=== PATIENT | male | born 1960 | race Caucasian/White ===

== ENCOUNTER 2016-04-22 12:58 | Emergency (ER) | payer OTHER ==
[2016-04-22] MEDS ORDERED: Acetaminophen 325 MG TAB ONE (13:24)
[2016-04-22] MEDS ORDERED: Promethazine HCl 25 MG/ML VIAL ONE (13:24)
[2016-04-22] MEDS ORDERED: Sodium Chloride 0.9% 1,000 ML ONE ×2 (13:41→16:24)
[2016-04-22 13:51] LABS: #Basophils 0.2 thou/uL (0.0-0.2); #Eosinphils 0.2 thou/uL (0.0-0.7); #Lymphocytes 0.9 thou/uL (1.20-3.40); #Monocytes 0.6 thou/uL (0.11-0.59); #Neutrophils 4.4 thou/uL (1.40-6.50); %Basophils 2.6 % (0.0-1.0); %Lymphocytes 13.7 % (21.0-51.0); %Monocytes 9.9 % (0.0-10.0); Hematocrit 48.8 % (42.0-52.0); Mean Platelet Volume 8.8 fL (7.4-10.4); Red Blood Cell (RBC) Count 5.52 mill/uL (4.70-6.10); White Blood Cell (WBC) Count 6.2 thou/uL (4.8-10.8)
[2016-04-22 14:04] LABS: ALT (SGPT) 14 U/L (0-55); AST (SGOT) 18 U/L (5-34); Acetaminophen Less than 3.0 mcg/mL (10.0-30.0); Alkaline Phosphatase 53 U/L (40-150); Anion Gap 15 mmol/L (10-20); BUN (Urea Nitrogen) 9 mg/dL (8.4-25.7); Bilirubin, Total 0.4 mg/dL (0.2-1.2); Calc. Creatinine Clearance 0 mL/min (70-130); Carbon Dioxide 22 mmol/L (22-29); Chloride 104 mmol/L (98-107); Estimated GFR-MDRD 58; Globulin 3.3 g/dL (2.4-3.5); Protein, Total 7.1 g/dL (6.0-8.3); Salicylate Less than 5.0 mg/dL (15.0-30.0)
--- NOTE | 2016-04-22 14:44 | RAD ---
RADIOGRAPH CHEST 2 VIEWS: HISTORY: 56-year-old male with cough and fever. FINDINGS: There is no air space density, pulmonary edema, pleural effusion, pneumothorax, or cardiomegaly. Th ere are sternotomy wires. No interval change since 06-16-15. IMPRESSION: No acute cardiopulmonary findings. nimesh POS: [facility]
--- NOTE | 2016-04-22 15:12 | CT ---
ABDOMEN CT WITH CONTRAST PELVIS CT WITH CONTRAST HISTORY: Cough. Nausea. Recent hospitalization for diverticulitis. History of an abdominal aort ic aneurysm. COMPARISON: Aortic dissection protocol from 04/12/2016 and 04/08/2016. TECHNIQUE: An abdomen and pelvis CT are performed with IV contrast. Enteric contrast was not admin istered. Coronal reformatted images are submitted for interpretation. FINDINGS ABDOMEN: Scarring and/or atelectasis in the right lower lobe, similar to the prior exam. No masses or consolidation. Heart size is normal. No pericardial effusion. The intrahepatic and extrahepatic portal vein is patent. The gallbladder is unremarkable. The liver, spleen, pancreas, and adrenal glands have appropriate attenuation. Symmetric enhancement of the kidneys. Bilaterally, no obstructive uropathy. Hypodensity in the mid left renal cortex, m easuring 1.6 x 2.7 cm. Hypodensity in the right renal cortex, measuring 1.5 x 1.0 cm. Hypodensitie s are similar to the previous CTs. Neither lesion could be adequately assessed on this exam due to technique. Bilaterally, no obstructive uropathy. No mesenteric mass, lymphadenopathy, free air, or free fluid. No gastrohepatic, retrocrural, or periportal lymphadenopathy. Evaluation of the alimentary canal is limited due to the absence of oral contrast. The gastric muco sa, the duodenum, and the small bowel loops are unremarkable. The ileocecal junction is normal. No rmal caliber appendix. There is evidence of appendicolith in the distal appendix. No inflammation. Scattered fecal material in a nondistended, nondilated colon. Diverticulosis, without evidence of diverticulitis, in the left hemicolon. There is atherosclerosis and eccentric thrombus, along with aneurysmal dilatation, along the infrare nal abdominal aorta. The largest area of aneurysmal dilatation measures 6.5 cm mediolateral x 5.6 c m anterior-posterior (previously measuring 6.5 x 5.4 cm). A second area of aneurysmal dilatation me asures 5.4 x 5.2 cm (previously measuring 5.5 x 5.2 cm). PELVIS: No mass, lymphadenopathy, free air, or free fluid. Evaluation is limited by beam attenuati on artifact due to a left hip prosthesis. No osteoblastic or osteolytic lesions. IMPRESSION 1. No acute abnormality within the abdomen or pelvis. 2. Indeterminate masses in the left and right kidney. 3. Stable appearance of an aneurysm involving the abdominal aorta. POS: [facility]
[2016-04-22 15:18] LABS: Bilirubin Negative (Negative); Blood, Urine Small (Negative); Glucose, Urine (Dipstick) Negative (Negative); Ketone, Urine Negative (Negative); Nitrite Negative (Negative); Protein, Urine (Dipstick) Negative (Neg-Trace); Urobilinogen 0.2 mg/dL (0.2-1.0)
[2016-04-22 15:29] LABS: Methadone Not Detected (NotDetected); Methamphetamine Not Detected (NotDetected)
[2016-04-22 15:37] LABS: RBC/HPF None Seen HPF (0-3); Squamous Epithelial 0-3 HPF (0-3)
[2016-04-22] MEDS ORDERED: Sodium Chloride 0.9% 100 ML ONE (15:41)
[2016-04-22] MEDS ORDERED: cefTRIAXone\\ROCEPHIN 2 GM VIAL ONE (15:41)
--- NOTE | 2016-04-22 17:48 | ERRECORD ---
[facility] EMERGENCY RECORD HPI FEVER (13:17 SHAN) CHIEF COMPLAINT: Patient presents for evaluation of fever. HISTORIAN: History provided by patient, History provided by patient's spouse, c/o fever, whole body aching, arrived by private vehicle; hyper entilating. states that she has similar illness a few days ago. He recently got out of hospital for treatment of diverticulitis and dx of 6.5 cm AAA. LOCATION: No localizing symptoms. QUALITY: Pain is dull in nature. SEVERITY: Maximum severity of symptoms moderate, Currently symptoms are moderate. TIME COURSE: Gradual onset of symptoms. RELIEVED BY: Patient's condition relieved by nothing. ROS (13:19 SHAN) CONSTITUTIONAL: Negative constitutional review of systems. EYES: Negative eye review of systems. ENT: Negative ears, nose, throat review of systems. CARDIOVASCULAR: Negative cardiovascular review of systems. RESPIRATORY: Negative respiratory review of systems. GI: Negative gastrointestinal review of systems. MUSCULOSKELETAL: Negative musculoskeletal review of systems. SKIN: Negative skin review of systems. NEUROLOGIC: Negative neurologic review of systems. NOTES: All systems reviewed, negative except as described above. PAST MEDICAL HISTORY (13:55 MSPE) MEDICAL HISTORY: Notes: AAA - dx'd , Past medical history includes gastrointestinal disease, diverticulitis, Past medical history includes endocrine disease, adrenal insufficiency, Past medical history includes collagen vascular disease, chronic sinusitis, CHF, history of hypertension. cardiac history, coronary artery disease, myocardial infarction, pulmonary disease, POSSIBLE chronic obstructive pulmonary disease. MALE SURGICAL HISTORY: Surgical history of orthopedic surgery, LEFT HIP REPLACEMENT, hernia repair, sinus surgery, heart cath. Surgical history of coronary artery bypass graft surgery, three vessels. PSYCHIATRIC HISTORY: No previous psychiatric history. SOCIAL HISTORY: Patient denies alcohol use, Patient denies drug use, Patient currently uses tobacco, smokes cigarettes, "occasional cigarette". KNOWN ALLERGIES Avelox CURRENT MEDICATIONS Advair Diskus: BLISTER, WITH INHALATION DEVICE : Strength - 500 mcg-50 mcg/Dose : &a-1R&a+25V*p+0X*r0795B*c202B*c15G*c2P*p-0X&a-25V&a+1R Name: Daly Jonathan Esparza JR : 1960 M56 MedRec: [id number] AcctNum: [id number] Prepared: Fri Apr 22, 2016 22:49 by Interface Page 1 of 5 pMD [facility] EMERGENCY RECORD INHALATION Patient Dose: 1 inhalation Inhaler 2 times a day.prn. (13:13 MSPE) meTOPROLOL tartrate: TABLET : Strength - 50 mg : ORAL Patient Dose: 50 mg Oral 2 times a day. (13:14 MSPE) ProAir HFA: HFA AEROSOL WITH ADAPTER (GRAM) : Strength - 90 mcg : INHALATION Patient Dose: 2 puff(s) every 6 hours PRN. (13:16 MSPE) Atrovent HFA: HFA AEROSOL WITH ADAPTER (GRAM) : Strength - 17 mcg/actuation : INHALATION Patient Dose: 2 puff(s) 2 times a day. (13:17 MSPE) aspirin: TABLET : Strength - 325 mg : ORAL Patient Dose: 1 tab(s) Oral once a day. (13:17 MSPE) Zofran ODT: TABLET,DISINTEGRATING : Strength - 4 mg : ORAL Patient Dose: 4 mg Oral every 6 hours PRN. (13:17 MSPE) Bentyl: CAPSULE : Strength - 10 mg : ORAL Patient Dose: 10 mg Oral every 8 hours PRN. (13:48 MSPE) Tylenol-Codeine #3: TABLET : Strength - 300 mg-30 mg : ORAL Patient Dose: 1-2 tab(s) Oral every 6 hours PRN. (13:48 MSPE) atorvastatin: TABLET : Strength - 20 mg : ORAL Patient Dose: 20 mg Oral once a day (at bedtime). (13:50 MSPE) carisoprodol: TABLET : Strength - 350 mg : ORAL Patient Dose: 350 mg Oral once a day. (13:51 MSPE) predniSONE: TABLET : Strength - 20 mg : ORAL Patient Dose: 20 mg Oral once a day. (13:51 MSPE) Augmentin: TABLET : Strength - 500 mg-125 mg : ORAL Patient Dose: 875/125 mg Oral 2 times a day. (13:59 MSPE) VITAL SIGNS VITAL SIGNS: BP: 117/56, Pulse: 111, Resp: 20, Temp: (Oral), O2 sat: 93 on Room Air, Time: 04/22/2016 13:08. (13:08 MSPE) Temp: 103.1 (Oral), Pain: 7-8, Time: 04/22/2016 13:10. (13:10 MSPE) BP: 84/49, Pulse: 86, Resp: 22, O2 sat: 97 on 2L Oxygen, Time: 04/22/2016 13:40. (13:40 MSPE) BP: 83/42, Pulse: 93, Resp: 20, O2 sat: 99 on 2L Oxygen, Time: 04/22/2016 13:51. (13:51 MSPE) Pulse: 92, Resp: 21, O2 sat: 100 on 2L, Time: 04/22/2016 13:57. (13:57 MSPE) &a-1R&a+25V*p+0X*s2998V*c202B*c15G*c2P*p-0X&a-25V&a+1R Name: Jonathan Kauffman JR : 1960 M56 MedRec: [id number] AcctNum: [id number] Prepared: MonApr 22, 2016 22:49 by Interface Page 2 of 5 pMD [facility] EMERGENCY RECORD BP: 105/57, Pulse: 89, Resp: 21, O2 sat: 100 on 2L Oxygen, Time: 04/22/2016 13:59. (13:59 MSPE) BP: 104/54, Pulse: 93, Resp: 20, O2 sat: 97 on 2L Oxygen, Time: 04/22/2016 14:15. (14:15 MSPE) BP: 100/58, Pulse: 89, Resp: 19, Temp: 100.3 (Oral), Pain: 7-8, O2 sat: 97 on 2L Oxygen, Time: 04/22/2016 14:44. (14:44 MSPE) BP: 101/64, Pulse: 100, Resp: 19, O2 sat: 96 on 2L Oxygen, Time: 04/22/2016 15:05. (15:05 MSPE) BP: 92/50, Pulse: 100, Resp: 20, Pain: 7, O2 sat: 96 on 2L, Time: 04/22/2016 15:19. (15:19 MSPE) BP: 82/51, Pulse: 95, Resp: 16, O2 sat: 94 on 2L Oxygen, Time: 04/22/2016 15:30. (15:30 MSPE) BP: 86/54, Pulse: 85, Resp: 17, O2 sat: 97 on 2L Oxygen, Time: 04/22/2016 15:45. (15:45 MSPE) BP: 81/58, Pulse: 88, Resp: 18, O2 sat: 94 on 2L Oxygen, Time: 04/22/2016 16:12. (16:12 MSPE) BP: 80/50, Pulse: 105, Resp: 18, O2 sat: 94 on 2L Oxygen, Time: 04/22/2016 16:21. (16:21 MSPE) BP: 81/48 (Left Arm), Pulse: 81, Temp: 100.3 (Oral), Time: 04/22/2016 16:35. (16:35 MSPE) BP: 74/41 (Right Arm), Pulse: 90, Resp: 21, O2 sat: 95 on 2L Oxygen, Time: 04/22/2016 16:36. (16:36 MSPE) BP: 83/50, Pulse: 95, Resp: 22, Time: 04/22/2016 16:46. (16:46 MSPE) BP: 92/52 L (Manual BP), Pulse: 107, Time: 04/22/2016 16:55. (16:55 MSPE) BP: 100/54 R (Manual BP), Pulse: 100, Time: 04/22/2016 16:55. (16:55 MSPE) BP: 92/56 L (Manual BP), Pulse: 100, Time: 04/22/2016 17:16. (17:16 MSPE) BP: 106/66 R (Manual BP), Pulse: 101, Time: 04/22/2016 17:16. (17:16 MSPE) BP: 96/56 L (Manual BP), Pulse: 101, Time: 04/22/2016 17:25. (17:25 MSPE) BP: 106/60 R (Manual BP), Pulse: 103, Resp: 18, Time: 04/22/2016 17:25. (17:25 MSPE) PHYSICAL EXAM (13:19 SHAN) CONSTITUTIONAL: Pulse normal, Blood pressure normal, Respiratory rate increased (hyperventilating at first)., Normal pulse oximetry, Patient appears non toxic, Patient appears in moderate vague distress. Patient alert and oriented to person, place and time, Nursing notes reviewed. HEAD: Head exam included findings of head atraumatic, normocephalic. EYES: Eye exam included findings of eyelids normal to inspection, Pupils equally round and reactive to light, Extraocular muscles intact. ENT: Pharynx exam normal, Uvula exam normal, Tonsil exam normal. NECK: Neck exam included findings of normal range of motion, Trachea midline. RESPIRATORY CHEST: Respiratory and chest exam normal. CARDIOVASCULAR: Cardiovascular exam included findings of heart rate regular rate and rhythm, Heart sounds normal. ABDOMEN MALE: Abdominal exam included findings of abdomen nontender, Bowel sounds normal. &a-1R&a+25V*p+0X*u0804C*c202B*c15G*c2P*p-0X&a-25V&a+1R Name: Jonathan Kauffman JR : 1960 M56 MedRec: [id number] AcctNum: [id number] Prepared: MonApr 22, 2016 22:49 by Interface Page 3 of 5 pMD [facility] EMERGENCY RECORD BACK: Back exam normal. UPPER EXTREMITY: Upper extremity exam included findings of inspection normal, Range of motion normal. NEURO: Neuro exam normal. SKIN: Skin exam normal. MEDICATION ADMINISTRATION SUMMARY Drug Name: *sodium chloride 0.9 % intravenous, Dose Ordered: 1 L, Route: IV Fluid Infusion, Status: Given, Time: 16:27 04/22/2016, Drug Name: cefTRIAXone, Dose Ordered: 2 g, Route: IV Push, Status: Given, Time: 15:50 04/22/2016, Drug Name: *sodium chloride 0.9 % intravenous, Dose Ordered: 1 L, Route: IV Fluid Infusion, Status: Given, Time: 13:45 04/22/2016, Drug Name: Dilaudid injection, Dose Ordered: 1 mg, Route: IV Push, Status: Given, Time: 13:27 04/22/2016, Drug Name: Phenergan injection, Dose Ordered: 12.5 mg, Route: IV Push, Status: Given, Time: 13:26 04/22/2016, Drug Name: Tylenol, Dose Ordered: 650 mg, Route: Oral, Status: Given, Time: 13:25 04/22/2016, *Additional information available in notes, Detailed record available in Medication Service section. DOCTOR NOTES TEXT: Gave the dilaudid 1 mg and 12.5 mg Phenergan for pain and nausea hoping he would relax and bp not go up with the large AAA. BP came down enough to require a liter of iv fluids. Strept positive; ON augmentin. This should not be--either false positive test (but with symptoms and fever) or an unusual resistant strain; which by hx caught while with him in hospital. Will allow 2 grams rocephin IV once. To continue meds from his other providers. (15:42 TERRY) Patient feels much better; however bp resistant to one liter; however, he now states that he took lisinopril and Toprol just before coming out 'to get my bp down'. It and the pain medication appear to have done that. Pressure agents conterindicated. Cerebrating fine. will give the second liter of fluids. Low grade temp at this time. (16:37 TERRY) Patient clinically much better than on adm; anxiety attack was likely a component. Goal is for a low but not symptomatically low bp with his aneurysm; systolic in the 90 to 100 range. When fluids in believe he can go but with close followup. (16:59 TERRY) DATA REVIEWED: Lab data reviewed, Xray data reviewed. (15:42 TERRY) PROBLEM LIST No recorded problems DIAGNOSIS (15:46 TERRY) FINAL: PRIMARY: STREPTOCOCCAL PHARYNGITIS, ADDITIONAL: 6.5 by 5.4 infrarenal aortic aneurysm, diverticulitis. &a-1R&a+25V*p+0X*q6568O*c202B*c15G*c2P*p-0X&a-25V&a+1R Name: DalyJonathan JR : 1960 M56 MedRec: [id number] AcctNum: [id number] Prepared: MonApr 22, 2016 22:49 by Interface Page 4 of 5 pMD [facility] EMERGENCY RECORD PRESCRIPTION No recorded prescriptions DISPOSITION PATIENT: Disposition Type: Discharge, Disposition: *Discharge Home. (15:46 TERRY) Patient left the department. (17:45 CHRIS) Hackett: CHRIS=ANDRES Bates, Mara STEWART=MD Walsh Stanley &a-1R&a+25V*p+0X*a5113B*c202B*c15G*c2P*p-0X&a-25V&a+1R Name: Jonathan Kauffman Isaias CHACON : 1960 M56 MedRec: [id number] AcctNum: [id number] Prepared: MonApr 22, 2016 22:49 by Interface Page 5 of 5 pMD [facility]
--- NOTE | 2016-04-22 17:54 | PICIS ---
[facility] EMERGENCY RECORD TRIAGE (13:10 MSPE) TRIAGE NOTES: ROY; "weird cough and nausea"; onset yesterday; recent hospitalization for diverticulitis. (13:10 MSPE) PATIENT: NAME: Jonathan Kauffman JR, AGE: 56, GENDER: male, : Sat 1960, TIME OF GREET: MonApr 22, 2016 12:59, PREFERRED LANGUAGE: Mohawk, ETHNICITY: Not or , ECODE BILLING MAP: [facility], SSN: [id number], Zip Code: [address], PHONE: , , , PERSON ID: [id number]. (13:10 MSPE) KG WEIGHT: 117.9 (est.). (13:12 MSPE) COMPLAINT: fever, hurts all over. (13:12 MSPE) ADMISSION: URGENCY: 3 Urgent, ADMISSION SOURCE: Home, TRANSPORT: CAR, BED: ER -02. (13:10 MSPE) IMMUNIZATIONS: Flu vaccine not up to date, Tetanus not up to date, Pneumococcal vaccine not up to date. (13:55 MSPE) PROVIDERS: TRIAGE NURSE: Mara Bates RN. (13:10 MSPE) VITAL SIGNS: BP 117/56, Pulse 111, Resp 20, (Oral), O2 Sat 93, on Room Air, Time 04/22/2016 13:08. (13:08 MSPE) PREVIOUS VISIT ALLERGIES: Avelox, moxifloxacin HCl. (13:10 MSPE) Avelox, moxifloxacin HCl. (13:55 MSPE) KNOWN ALLERGIES Avelox CURRENT MEDICATIONS Advair Diskus: BLISTER, WITH INHALATION DEVICE : Strength - 500 mcg-50 mcg/Dose : INHALATION Patient Dose: 1 inhalation Inhaler 2 times a day.prn. (13:13 MSPE) meTOPROLOL tartrate: TABLET : Strength - 50 mg : ORAL Patient Dose: 50 mg Oral 2 times a day. (13:14 MSPE) ProAir HFA: HFA AEROSOL WITH ADAPTER (GRAM) : Strength - 90 mcg : INHALATION Patient Dose: 2 puff(s) every 6 hours PRN. (13:16 MSPE) Atrovent HFA: HFA AEROSOL WITH ADAPTER (GRAM) : Strength - 17 mcg/actuation : INHALATION Patient Dose: 2 puff(s) 2 times a day. (13:17 MSPE) aspirin: TABLET : Strength - 325 mg : ORAL Patient Dose: 1 tab(s) Oral once a day. (13:17 MSPE) Zofran ODT: TABLET,DISINTEGRATING : Strength - 4 mg : ORAL Patient Dose: 4 mg Oral every 6 hours PRN. (13:17 MSPE) Bentyl: CAPSULE : Strength - 10 mg : ORAL &a-1R&a+25V*p+0X*e1003X*c202B*c15G*c2P*p-0X&a-25V&a+1R Name: Jonathan Kauffman : 1960 M56 MedRec: [id number] AcctNum: [id number] Prepared: MonApr 22, 2016 22:55 by Interface Page 1 of 17 pMD [facility] EMERGENCY RECORD Patient Dose: 10 mg Oral every 8 hours PRN. (13:48 MSPE) Tylenol-Codeine #3: TABLET : Strength - 300 mg-30 mg : ORAL Patient Dose: 1-2 tab(s) Oral every 6 hours PRN. (13:48 MSPE) atorvastatin: TABLET : Strength - 20 mg : ORAL Patient Dose: 20 mg Oral once a day (at bedtime). (13:50 MSPE) carisoprodol: TABLET : Strength - 350 mg : ORAL Patient Dose: 350 mg Oral once a day. (13:51 MSPE) predniSONE: TABLET : Strength - 20 mg : ORAL Patient Dose: 20 mg Oral once a day. (13:51 MSPE) Augmentin: TABLET : Strength - 500 mg-125 mg : ORAL Patient Dose: 875/125 mg Oral 2 times a day. (13:59 MSPE) VITAL SIGNS VITAL SIGNS: BP: 117/56, Pulse: 111, Resp: 20, Temp: (Oral), O2 sat: 93 on Room Air, Time: 04/22/2016 13:08. (13:08 MSPE) Temp: 103.1 (Oral), Pain: 7-8, Time: 04/22/2016 13:10. (13:10 MSPE) BP: 84/49, Pulse: 86, Resp: 22, O2 sat: 97 on 2L Oxygen, Time: 04/22/2016 13:40. (13:40 MSPE) BP: 83/42, Pulse: 93, Resp: 20, O2 sat: 99 on 2L Oxygen, Time: 04/22/2016 13:51. (13:51 MSPE) Pulse: 92, Resp: 21, O2 sat: 100 on 2L, Time: 04/22/2016 13:57. (13:57 MSPE) BP: 105/57, Pulse: 89, Resp: 21, O2 sat: 100 on 2L Oxygen, Time: 04/22/2016 13:59. (13:59 MSPE) BP: 104/54, Pulse: 93, Resp: 20, O2 sat: 97 on 2L Oxygen, Time: 04/22/2016 14:15. (14:15 MSPE) BP: 100/58, Pulse: 89, Resp: 19, Temp: 100.3 (Oral), Pain: 7-8, O2 sat: 97 on 2L Oxygen, Time: 04/22/2016 14:44. (14:44 MSPE) BP: 101/64, Pulse: 100, Resp: 19, O2 sat: 96 on 2L Oxygen, Time: 04/22/2016 15:05. (15:05 MSPE) BP: 92/50, Pulse: 100, Resp: 20, Pain: 7, O2 sat: 96 on 2L, Time: 04/22/2016 15:19. (15:19 MSPE) BP: 82/51, Pulse: 95, Resp: 16, O2 sat: 94 on 2L Oxygen, Time: 04/22/2016 15:30. (15:30 MSPE) BP: 86/54, Pulse: 85, Resp: 17, O2 sat: 97 on 2L Oxygen, Time: 04/22/2016 15:45. (15:45 MSPE) BP: 81/58, Pulse: 88, Resp: 18, O2 sat: 94 on 2L Oxygen, Time: 04/22/2016 16:12. (16:12 MSPE) BP: 80/50, Pulse: 105, Resp: 18, O2 sat: 94 on 2L Oxygen, Time: 04/22/2016 16:21. (16:21 MSPE) BP: 81/48 (Left Arm), Pulse: 81, Temp: 100.3 (Oral), Time: 04/22/2016 16:35. (16:35 MSPE) BP: 74/41 (Right Arm), Pulse: 90, Resp: 21, O2 sat: 95 on 2L Oxygen, &a-1R&a+25V*p+0X*o9547F*c202B*c15G*c2P*p-0X&a-25V&a+1R Name: Jonathan Kauffman JR : 1960 M56 MedRec: [id number] AcctNum: [id number] Prepared: MonApr 22, 2016 22:55 by Interface Page 2 of 17 pMD [facility] EMERGENCY RECORD Time: 04/22/2016 16:36. (16:36 MSPE) BP: 83/50, Pulse: 95, Resp: 22, Time: 04/22/2016 16:46. (16:46 MSPE) BP: 92/52 L (Manual BP), Pulse: 107, Time: 04/22/2016 16:55. (16:55 MSPE) BP: 100/54 R (Manual BP), Pulse: 100, Time: 04/22/2016 16:55. (16:55 MSPE) BP: 92/56 L (Manual BP), Pulse: 100, Time: 04/22/2016 17:16. (17:16 MSPE) BP: 106/66 R (Manual BP), Pulse: 101, Time: 04/22/2016 17:16. (17:16 MSPE) BP: 96/56 L (Manual BP), Pulse: 101, Time: 04/22/2016 17:25. (17:25 MSPE) BP: 106/60 R (Manual BP), Pulse: 103, Resp: 18, Time: 04/22/2016 17:25. (17:25 MSPE) NURSING ASSESSMENT: HEAD-TO-TOE (13:10 MSPE) CONSTITUTIONAL: Patient arrives, via hospital wheelchair, History obtained from patient, Patient appears, generally ill, Patient cooperative, Patient alert, Oriented to person, place and time, Skin abnormal, Skin temperature is hot, Skin dry, Skin normal in color. PAIN: Onset of pain yesterday, c/o aching "all over body". SKIN: Skin assessment findings include skin, hot to touch, Skin dry, Skin normal in color, Notes: intact. NEURO: GCS:, Eye opening: (4) - Spontaneous, Verbal: (5) - Oriented/conversive, Motor: (6) - Obeys commands/Spontaneous, GCS Total: 15, Hand grasps equal, Associated with fever. BACK: Notes: c/o chronic back and hip pain. RESPIRATORY/CHEST: Breath sounds clear, Respiratory assessment findings include respiratory effort easy, Respirations regular, Conversing normally, Associated with cough, pt reports having a "weird cough", Associated with fever, Maximum temperature not taken by pt. ABDOMEN: Abdomen soft, Notes: non-tender. GENITOURINARY MALE: Notes: denies urinary sx. SAFETY: Side rails up, Cart/Stretcher in lowest position, Family at bedside, Call light within reach, Hospital ID band on. NURSING PROCEDURE: DISCHARGE NOTE (17:35 MSPE) DISCHARGE: Patient discharged to home, ambulating without assistance, family driving, accompanied by //partner, Summary of Care printed/ provided, Discharge instructions given to patient, Simple or moderate discharge teaching performed, Above person(s) verbalized understanding of discharge instructions and follow-up care, Patient treated and evaluated by physician, Notes: Pt BP improved with infusion of second liter of NS; Dr Walsh aware of improved BP trend. OK to dc. BELONGINGS: Belongings remain with patient. NURSING PROCEDURE: INTAKE AND OUTPUT (15:31 MSPE) INTAKE AND OUTPUT: Oral intake(ml): 240, IV intake(ml): 1000, Total Intake (ml): 1240ml, Urine output(ml): 175, Total &a-1R&a+25V*p+0X*p3136Y*c202B*c15G*c2P*p-0X&a-25V&a+1R Name: VancegarrickJonathan JR : 1960 M56 MedRec: [id number] AcctNum: [id number] Prepared: MonApr 22, 2016 22:55 by Interface Page 3 of 17 pMD [facility] EMERGENCY RECORD Output (ml): 175ml, Grand Total: Intake is greater than output by 1065mls. NURSING PROCEDURE: IV (13:15 MSPE) IV SITE 1: IV therapy indicated for hydration, IV therapy indicated for medication administration, IV established, to the right antecubital, using an 18 gauge catheter, in one attempt, IV site prepped with chloraprep, Saline lock established, Flushed with normal saline (mls): 10, Labs drawn at time of placement, labeled in the presence of the patient and sent to lab, Blood cultures drawn at time of placement, labeled in the presence of the patient and sent to lab, Notes: first BC drawn. NURSING PROCEDURE: NURSE NOTES NURSES NOTES: Notes: NS bolus initiated. HOB flat. Pt remains awake and alert. Sts pain is less. Nausea improved. (13:45 MSPE) Notes: IV bolus infusing well per IV pump. Phleb at bedside to draw second BC. (13:57 MSPE) Notes: BP dropped after rec'g medications. O2 sat in upper 80's as well. Dr Walsh aware with orders rec'd. (13:40 MSPE) Patient is awaiting results, Patient is awaiting disposition, Notes: Pt back from CT; remains awake and alert. Skin cooler and oral temp down. Back pain better; does c/o headache "like my brain's sloshing around" and LLQ abd pain "from diverticulitis". IV fluid infusing well. (14:47 MSPE) Notes: Dr Walsh made aware of pt's c/o persistent ROY. Pt attempting to obtain urine spec. (14:59 MSPE) Patient resting quietly, Beverage given to patient, Patient is awaiting results, Patient is awaiting disposition, Notes: Awaiting strep results. Juice to pt. (15:19 MSPE) Notes: Dr Walsh at bedside to discuss findings with pt. made aware of BP trend since IV fluid infusion complete. (15:37 MSPE) Notes: Dr Walsh made aware of BP trend now that IV med infused; new order rec'd. (16:23 MSPE) Notes: Pt alert, oriented, conversive. Skin warm, color pink. Sts feels better than on arrival to ED. Dr Walsh back in at bedside. Aware of BP. Will continue with IV fluids. Pt wanting to sit up on side of bed. Repositions self ad matt. Denies dizziness while sitting up. (16:35 MSPE) Notes: Bilat manual BP documented. Dr Walsh at bedside and aware of results. Pt remains alert, oriented. Is not dizzy , lightheaded. No other complaints. Wants to go home "to my own bed". Will continue to give second liter of fluid and monitor VS. (16:55 MSPE) VITAL SIGNS: Pulse: 92, Resp: 21, O2 sat: 100, on: 2L. (13:57 MSPE) BP: 92, / 50, Pulse: 100, Resp: 20, Pain: 7, O2 sat: 96, on: 2L. (15:19 MSPE) NURSING PROCEDURE: OXYGEN THERAPY (13:40 MSPE) &a-1R&a+25V*p+0X*k2549P*c202B*c15G*c2P*p-0X&a-25V&a+1R Name: Jonathan Kauffman JR : 1960 M56 MedRec: [id number] AcctNum: [id number] Prepared: MonApr 22, 2016 22:55 by Interface Page 4 of 17 pMD [facility] EMERGENCY RECORD OXYGEN THERAPY: Oxygen therapy indicated for desaturation, Oxygen saturation 88%, by adult/pediatric oxisensor, multiple pulse oximetry reading, 2L oxygen given, via nasal cannula applied, Applied by ANDRES Bates, via nasal cannula. FOLLOW-UP: After procedure, oxygen saturation 97%, After procedure, breath sounds clear. NURSING PROCEDURE: TRANSPORT TO TESTS TRANSPORT TO TESTS: Patient transported to CT scan, via cart, Accompanied by x-ray cardiac technician. (14:27 MSPE) FOLLOW-UP: After procedure, patient returned to emergency department. (14:43 MSPE) NURSING PROCEDURE: URINE COLLECTION (15:00 MSPE) URINE COLLECTION MALE: Urine collection indicated for fever, Urine collected by void, output amount (mL) 175, urine yellow in color, and clear, Specimen labeled in the presence of the patient and sent to lab, Specimen obtained for culture labeled in the presence of the patient and sent to lab. ORDER DETAILS Order Name: CBC with Differential, Status: Active, Time: 13:14 04/22/2016, User: TERRY, - Ordered for: MD Walsh Stanley, - Entered by: MD Walsh Stanley - MonApr 22, 2016 13:14, - Quantity: 1, Order Name: Comprehensive Metabolic Panel, Status: Active, Time: 13:15 04/22/2016, User: TERRY, - Ordered for: MD Walsh Stanley, - Entered by: MD Walsh Stanley - Fri Apr 22, 2016 13:15, - Quantity: 1, Order Name: CRP (Inflamatory), Status: Active, Time: 13:15 04/22/2016, User: TERRY, - Ordered for: MD Walsh Stanley, - Entered by: MD Walsh Stanley - Fri Apr 22, 2016 13:15, - Quantity: 1, Order Name: CT Abdomen Pelvis W Con, Status: Active, Time: 13:16 04/22/2016, User: TERRY, - Ordered for: MD Walsh Stanley, - Entered by: MD Walsh Stanley - Fri Apr 22, 2016 13:16, - Quantity: 1, Order Name: Culture, Blood, Status: Active, Time: 13:15 04/22/2016, User: TERRY, - Ordered for: MD Walsh Stanley, - Entered by: MD Walsh Stanley - Fri Apr 22, 2016 13:15, - Quantity: 1, Order Name: Culture, Urine, Status: Active, Time: 13:15 04/22/2016, User: TERRY, - Ordered for: MD Walsh Stanley, &a-1R&a+25V*p+0X*j5245H*c202B*c15G*c2P*p-0X&a-25V&a+1R Name: Jonathan Kauffman JR : 1960 M56 MedRec: [id number] AcctNum: [id number] Prepared: MonApr 22, 2016 22:55 by Interface Page 5 of 17 pMD [facility] EMERGENCY RECORD - Entered by: MD Walsh Stanley - Fri Apr 22, 2016 13:15, - Quantity: 1, Order Name: Drug Screen, Serum, Status: Active, Time: 13:15 04/22/2016, User: TERRY, - Ordered for: MD Walsh Stanley, - Entered by: MD Walsh Stanley - Fri Apr 22, 2016 13:15, - Quantity: 1, Order Name: Drug Screen, Urine, Status: Active, Time: 14:13 04/22/2016, User: TERRY, - Ordered for: MD Walsh Stanley, - Entered by: MD Walsh Stanley Bhavani Apr 22, 2016 14:13, - Quantity: 1, Order Name: ERRT Oxygen Usage ER, Status: Active, Time: 14:37 04/22/2016, User: CHRIS, - Ordered for: MD Walsh Stanley, - Entered by: ANDRES Bates, [facility] Apr 22, 2016 14:37, - Quantity: 1, Order Name: ERRT Pulse Oximeter ER, Status: Active, Time: 14:37 04/22/2016, User: CHRIS, - Ordered for: MD Walsh Stanley, - Entered by: ANDRES Bates, [facility] Apr 22, 2016 14:37, - Quantity: 1, Order Name: Influenza A&B Ag Screen, Status: Active, Time: 13:17 04/22/2016, User: TERRY, - Ordered for: MD Walsh Stanley, - Entered by: MD Walsh Stanley Bhavani Apr 22, 2016 13:17, - Quantity: 1, Order Name: Lactic Acid, Status: Active, Time: 13:50 04/22/2016, User: TERRY, - Ordered for: MD Walsh Stanley, - Entered by: MD Walsh Stanley Bhavani Apr 22, 2016 13:50, - Quantity: 1, Order Name: SALINE LOCK, Status: Done, Time: 13:40 04/22/2016, User: CHRIS, - Ordered for: MD Walsh Stanley, - Entered by: MD Walsh Stanley Bhavani Apr 22, 2016 13:11, - Quantity: 1, Order Name: Strep Group A Screen, Status: Active, Time: 15:06 04/22/2016, User: TERRY, - Ordered for: MD Walsh Stanley, - Entered by: MD Walsh Stanley Bhavani Apr 22, 2016 15:06, - Quantity: 1, Order Name: Urinalysis with Microscopic, Status: Active, Time: 13:15 04/22/2016, User: TERRY, - Ordered for: MD Walsh Stanley, - Entered by: MD Walsh Stanley - Bhavani Apr 22, 2016 13:15, - Quantity: 1, Order Name: XR Chest Pa & Lat STANDARD, Status: Active, Time: 13:16 04/22/2016, User: TERRY, - Ordered for: MD Walsh Stanley, &a-1R&a+25V*p+0X*x5275M*c202B*c15G*c2P*p-0X&a-25V&a+1R Name: Jonathan Kauffman JR : 1960 M56 MedRec: [id number] AcctNum: [id number] Prepared: MonApr 22, 2016 22:55 by Interface Page 6 of 17 pMD [facility] EMERGENCY RECORD - Entered by: MD Walsh Stanley - Bhavani Apr 22, 2016 13:16, - Quantity: 1. MEDICATION ADMINISTRATION SUMMARY Drug Name: *sodium chloride 0.9 % intravenous, Dose Ordered: 1 L, Route: IV Fluid Infusion, Status: Given, Time: 16:27 04/22/2016, Drug Name: cefTRIAXone, Dose Ordered: 2 g, Route: IV Push, Status: Given, Time: 15:50 04/22/2016, Drug Name: *sodium chloride 0.9 % intravenous, Dose Ordered: 1 L, Route: IV Fluid Infusion, Status: Given, Time: 13:45 04/22/2016, Drug Name: Dilaudid injection, Dose Ordered: 1 mg, Route: IV Push, Status: Given, Time: 13:27 04/22/2016, Drug Name: Phenergan injection, Dose Ordered: 12.5 mg, Route: IV Push, Status: Given, Time: 13:26 04/22/2016, Drug Name: Tylenol, Dose Ordered: 650 mg, Route: Oral, Status: Given, Time: 13:25 04/22/2016, *Additional information available in notes, Detailed record available in Medication Service section. MEDICATION SERVICE cefTRIAXone: Order: cefTRIAXone (ceftriaxone sodium) - Dose: 2 g : IV Push Schedule: Now Ordered by: Jose Walsh MD Entered by: Jose Walsh MD MonApr 22, 2016 15:42 , Acknowledged by: Mara Bates RN MonApr 22, 2016 15:43 Documented as given by: Mara Bates RN MonApr 22, 2016 15:50 Patient, Medication, Dose, Route and Time verified prior to administration. Amount given: 2Grams, IV SITE #1 IVPB or drip, initial infusion, IVPB mixed in: 100ml, Fluid: 0.9NS, via primary tubing, on an IV pump, at 200 ml/hr, Awake and alert- acceptable, Verified Blood Culture collection prior to Antibiotic administration, Connections checked prior to administration, Line traced prior to administration, Catheter placement confirmed via flush prior to administration, IV site without signs or symptoms of infiltration during medication administration, No swelling during administration, No drainage during administration, IV flushed after administration, Correct patient, time, route, dose and medication confirmed prior to administration, Patient advised of actions and side-effects prior to administration, Allergies confirmed and medications reviewed prior to administration, Patient in position of comfort, Side rails up, Cart in lowest position, Family at bedside. cefTRIAXone: _IV SITE #1:_, Medication infusion discontinued, on MonApr 22, 2016 16:21, 35 minutes, ., Total amount infused: 100ml, IV Line flushed after administration, BP: 80, / 50, Pulse: 105, Resp: 18, O2 sat: 94, on 2L Oxygen. (16:21 MSPE) Dilaudid injection: Order: Dilaudid injection (hydromorphone HCl) - Dose: 1 mg : IV Push Schedule: Now &a-1R&a+25V*p+0X*f1662B*c202B*c15G*c2P*p-0X&a-25V&a+1R Name: Jonathan Kauffman : 1960 M56 MedRec: [id number] AcctNum: [id number] Prepared: MonApr 22, 2016 22:55 by Interface Page 7 of 17 pMD [facility] EMERGENCY RECORD Ordered by: Jose Walsh MD Entered by: Jose Walsh MD MonApr 22, 2016 13:12 , Acknowledged by: Chaparrita Henry RN MonApr 22, 2016 13:23 Documented as given by: Chaparrita Henry RN MonApr 22, 2016 13:27 Patient, Medication, Dose, Route and Time verified prior to administration. Amount given: 1MG, IV SITE #1 IVP, subsequent different medication, Slowly, Awake and alert- acceptable, Catheter placement confirmed via flush prior to administration, IV site without signs or symptoms of infiltration during medication administration, No swelling during administration, No drainage during administration, IV flushed after administration, Correct patient, time, route, dose and medication confirmed prior to administration, Patient advised of actions and side-effects prior to administration, Allergies confirmed and medications reviewed prior to administration. Phenergan injection: Order: Phenergan injection (promethazine HCl) - Dose: 12.5 mg : IV Push Schedule: Now Ordered by: Jose Walsh MD Entered by: Jose Walsh MD MonApr 22, 2016 13:12 , Acknowledged by: Chaparrita Henry RN MonApr 22, 2016 13:23 Documented as given by: Chaparrita Henry RN MonApr 22, 2016 13:26 Patient, Medication, Dose, Route and Time verified prior to administration. Amount given: 12.5MG, IV SITE #1 IVP, initial medication, Slowly, Awake and alert- acceptable, Correct patient, time, route, dose and medication confirmed prior to administration, Patient advised of actions and side-effects prior to administration, Allergies confirmed and medications reviewed prior to administration, Patient in position of comfort, Side rails up, Cart in lowest position, Family at bedside. sodium chloride 0.9 % intravenous: Order: sodium chloride 0.9 % intravenous (0.9 % sodium chloride) - Dose: 1 L : IV Fluid Infusion Notes: (Bolus) Verbal Order Ordered by: Jose Walsh MD Entered by: Mara Bates RN MonApr 22, 2016 13:45 Documented as given by: Mara Bates RN MonApr 22, 2016 13:45 Patient, Medication, Dose, Route and Time verified prior to administration. Amount given: 1000ml, IV SITE #1 IV fluids established for hydration, IV SITE #1 1st bag hung, amount 1 Liter hung, IV SITE #1 bolus of 900 ml established, IV SITE #1 Rate of bolus, 999, ml/hr, via primary tubing, IV SITE #1 on IV pump, Slightly drowsey, easily aroused-acceptable, Connections checked prior to administration, Line traced prior to administration, Catheter placement confirmed via flush prior to administration, IV site without signs or symptoms of infiltration during medication administration, No swelling during administration, No drainage during administration, IV flushed after &a-1R&a+25V*p+0X*k1215T*c202B*c15G*c2P*p-0X&a-25V&a+1R Name: Jonathan Kauffman JR : 1960 M56 MedRec: [id number] AcctNum: [id number] Prepared: MonApr 22, 2016 22:55 by Interface Page 8 of 17 pMD [facility] EMERGENCY RECORD administration, Correct patient, time, route, dose and medication confirmed prior to administration, Patient advised of actions and side-effects prior to administration, Allergies confirmed and medications reviewed prior to administration. : Follow Up : _IV SITE #1:_, IV fluid infusion discontinued, on MonApr 22, 2016 15:09, Total fluid hydration time IV site 1 1 hour, 25 minutes, ., Total amount infused: 1000ml, IV Line flushed after administration. (15:05 MSPE) sodium chloride 0.9 % intravenous: Order: sodium chloride 0.9 % intravenous (0.9 % sodium chloride) - Dose: 1 L : IV Fluid Infusion Notes: (Bolus) Verbal Order Ordered by: Jose Walsh MD Entered by: Mara Bates RN MonApr 22, 2016 16:24 , Acknowledged by: Mara Bates RN MonApr 22, 2016 16:24 Documented as given by: Mara Bates RN MonApr 22, 2016 16:27 Patient, Medication, Dose, Route and Time verified prior to administration. Amount given: 1000ml, IV SITE #1 IV fluids established for hydration, IV SITE #1 2nd bag hung, amount 1 Liter hung, IV SITE #1 bolus of 1000 ml established, IV SITE #1 Rate of bolus, 999, ml/hr, via primary tubing, IV SITE #1 on IV pump, Awake and alert- acceptable, Connections checked prior to administration, Line traced prior to administration, Catheter placement confirmed via flush prior to administration, IV site without signs or symptoms of infiltration during medication administration, No swelling during administration, No drainage during administration, IV flushed after administration, Correct patient, time, route, dose and medication confirmed prior to administration, Patient advised of actions and side-effects prior to administration, Allergies confirmed and medications reviewed prior to administration, Patient in position of comfort, Side rails up, Cart in lowest position, Family at bedside. : Follow Up : _IV SITE #1:_, IV fluid infusion discontinued, on MonApr 22, 2016 17:29, Total fluid hydration time IV site 1 1 hour, 5 minutes, ., Total amount infused: 1000ml, IV Discontinued with catheter intact. (17:28 MSPE) Tylenol: Order: Tylenol (acetaminophen) - Dose: 650 mg : Oral Schedule: Now Ordered by: Jose Walsh MD Entered by: Jose Walsh MD MonApr 22, 2016 13:13 , Acknowledged by: Chaparrita Henry RN MonApr 22, 2016 13:23 Documented as given by: Chaparrita Henry RN MonApr 22, 2016 13:25 Patient, Medication, Dose, Route and Time verified prior to administration. Amount given: 650MG, Patient appears Awake and alert- acceptable, Correct patient, time, route, dose and medication confirmed prior to administration, Patient advised of actions and side-effects prior to administration, Allergies confirmed and medications reviewed prior to &a-1R&a+25V*p+0X*f2484X*c202B*c15G*c2P*p-0X&a-25V&a+1R Name: Jonathan Kauffman JR : 1960 M56 MedRec: [id number] AcctNum: [id number] Prepared: MonApr 22, 2016 22:55 by Interface Page 9 of 17 pMD [facility] EMERGENCY RECORD administration, Patient in position of comfort, Side rails up, Cart in lowest position, Family at bedside. HPI FEVER (13:17 SHAN) CHIEF COMPLAINT: Patient presents for evaluation of fever. HISTORIAN: History provided by patient, History provided by patient's spouse, c/o fever, whole body aching, arrived by private vehicle; hyper entilating. states that she has similar illness a few days ago. He recently got out of hospital for treatment of diverticulitis and dx of 6.5 cm AAA. LOCATION: No localizing symptoms. QUALITY: Pain is dull in nature. SEVERITY: Maximum severity of symptoms moderate, Currently symptoms are moderate. TIME COURSE: Gradual onset of symptoms. RELIEVED BY: Patient's condition relieved by nothing. ROS (13:19 SHAN) CONSTITUTIONAL: Negative constitutional review of systems. EYES: Negative eye review of systems. ENT: Negative ears, nose, throat review of systems. CARDIOVASCULAR: Negative cardiovascular review of systems. RESPIRATORY: Negative respiratory review of systems. GI: Negative gastrointestinal review of systems. MUSCULOSKELETAL: Negative musculoskeletal review of systems. SKIN: Negative skin review of systems. NEUROLOGIC: Negative neurologic review of systems. NOTES: All systems reviewed, negative except as described above. PAST MEDICAL HISTORY (13:55 MSPE) MEDICAL HISTORY: Notes: AAA - dx'd , Past medical history includes gastrointestinal disease, diverticulitis, Past medical history includes endocrine disease, adrenal insufficiency, Past medical history includes collagen vascular disease, chronic sinusitis, CHF, history of hypertension. cardiac history, coronary artery disease, myocardial infarction, pulmonary disease, POSSIBLE chronic obstructive pulmonary disease. MALE SURGICAL HISTORY: Surgical history of orthopedic surgery, LEFT HIP REPLACEMENT, hernia repair, sinus surgery, heart cath. Surgical history of coronary artery bypass graft surgery, three vessels. PSYCHIATRIC HISTORY: No previous psychiatric history. SOCIAL HISTORY: Patient denies alcohol use, Patient denies drug use, Patient currently uses tobacco, smokes cigarettes, "occasional cigarette". PHYSICAL EXAM (13:19 SHAN) CONSTITUTIONAL: Pulse normal, Blood pressure normal, Respiratory rate increased (hyperventilating at first)., Normal pulse &a-1R&a+25V*p+0X*g1085B*c202B*c15G*c2P*p-0X&a-25V&a+1R Name: Jonathan Kauffman : 1960 M56 MedRec: [id number] AcctNum: [id number] Prepared: MonApr 22, 2016 22:55 by Interface Page 10 of 17 pMD [facility] EMERGENCY RECORD oximetry, Patient appears non toxic, Patient appears in moderate vague distress. Patient alert and oriented to person, place and time, Nursing notes reviewed. HEAD: Head exam included findings of head atraumatic, normocephalic. EYES: Eye exam included findings of eyelids normal to inspection, Pupils equally round and reactive to light, Extraocular muscles intact. ENT: Pharynx exam normal, Uvula exam normal, Tonsil exam normal. NECK: Neck exam included findings of normal range of motion, Trachea midline. RESPIRATORY CHEST: Respiratory and chest exam normal. CARDIOVASCULAR: Cardiovascular exam included findings of heart rate regular rate and rhythm, Heart sounds normal. ABDOMEN MALE: Abdominal exam included findings of abdomen nontender, Bowel sounds normal. BACK: Back exam normal. UPPER EXTREMITY: Upper extremity exam included findings of inspection normal, Range of motion normal. NEURO: Neuro exam normal. SKIN: Skin exam normal. EVENTS TRANSFER: Triage to Emergency Emergency Room -02. (MonApr 22, 2016 13:10 MSPE) Removed from Emergency Emergency Room -02. (17:45 MSPE) DOCTOR NOTES TEXT: Gave the dilaudid 1 mg and 12.5 mg Phenergan for pain and nausea hoping he would relax and bp not go up with the large AAA. BP came down enough to require a liter of iv fluids. Strept positive; ON augmentin. This should not be--either false positive test (but with symptoms and fever) or an unusual resistant strain; which by hx caught while with him in hospital. Will allow 2 grams rocephin IV once. To continue meds from his other providers. (15:42 TERRY) Patient feels much better; however bp resistant to one liter; however, he now states that he took lisinopril and Toprol just before coming out 'to get my bp down'. It and the pain medication appear to have done that. Pressure agents conterindicated. Cerebrating fine. will give the second liter of fluids. Low grade temp at this time. (16:37 TERRY) Patient clinically much better than on adm; anxiety attack was likely a component. Goal is for a low but not symptomatically low bp with his aneurysm; systolic in the 90 to 100 range. When fluids in believe he can go but with close followup. (16:59 TERRY) DATA REVIEWED: Lab data reviewed, Xray data reviewed. (15:42 TERRY) PROBLEM LIST &a-1R&a+25V*p+0X*m5598S*c202B*c15G*c2P*p-0X&a-25V&a+1R Name: Jonathan Kauffman JR : 1960 M56 MedRec: [id number] AcctNum: [id number] Prepared: MonApr 22, 2016 22:55 by Interface Page 11 of 17 pMD [facility] EMERGENCY RECORD No recorded problems DIAGNOSIS (15:46 SHAN) FINAL: PRIMARY: STREPTOCOCCAL PHARYNGITIS, ADDITIONAL: 6.5 by 5.4 infrarenal aortic aneurysm, diverticulitis. DISPOSITION PATIENT: Disposition Type: Discharge, Disposition: *Discharge Home. (15:46 SHAN) Patient left the department. (17:45 MSPE) INSTRUCTION (15:48 SHAN) DISCHARGE: PHARYNGITIS, STREP (CONFIRMED), ABDOMINAL AORTIC ANEURYSM (STABLE), DIVERTICULITIS, FEVER CONTROL (ADULT). SPECIAL: 1. continue current meds 2. take in extra liquids 3. followup soon with regular provider 4. continue with directions as given on recent hospital discharge. PRESCRIPTION No recorded prescriptions IMAGING *DISCHARGE INSTRUCTIONS RECEIPT: Image captured from scanner. (17:41 MSPE) SUP: Image captured from scanner. (17:42 MSPE) ADMIN (22:44 SHAN) DIGITAL SIGNATURE: MD Walsh Stanley. RESULTS RADIOLOGY: CT Abdomen Pelvis W Con Observe DT: MonApr 22, 2016 13:18, ABDPELV ABDOMEN CT WITH CONTRAST PELVIS CT WITH CONTRAST HISTORY: Cough. Nausea. Recent hospitalization for diverticulitis. History of an abdominal aort ic aneurysm. COMPARISON: Aortic dissection protocol from 04/12/2016 and 04/08/2016. TECHNIQUE: An abdomen and pelvis CT are performed with IV contrast. Enteric contrast was not admin istered. Coronal reformatted images are submitted for interpretation. FINDINGS &a-1R&a+25V*p+0X*c9386B*c202B*c15G*c2P*p-0X&a-25V&a+1R Name: Daly Jonathan Isaias CHACON : 1960 M56 MedRec: [id number] AcctNum: [id number] Prepared: MonApr 22, 2016 22:55 by Interface Page 12 of 17 pMD [facility] EMERGENCY RECORD ABDOMEN: Scarring and/or atelectasis in the right lower lobe, similar to the prior exam. No masses or consolidation. Heart size is normal. No pericardial effusion. The intrahepatic and extrahepatic portal vein is patent. The gallbladder is unremarkable. The liver, spleen, pancreas, and adrenal glands have appropriate attenuation. Symmetric enhancement of the kidneys. Bilaterally, no obstructive uropathy. Hypodensity in the mid left renal cortex, m easuring 1.6 x 2.7 cm. Hypodensity in the right renal cortex, measuring 1.5 x 1.0 cm. Hypodensitie s are similar to the previous CTs. Neither lesion could be adequately assessed on this exam due to technique. Bilaterally, no obstructive uropathy. No mesenteric mass, lymphadenopathy, free air, or free fluid. No gastrohepatic, retrocrural, or periportal lymphadenopathy. Evaluation of the alimentary canal is limited due to the absence of oral contrast. The gastric muco sa, the duodenum, and the small bowel loops are unremarkable. The ileocecal junction is normal. No rmal caliber appendix. There is evidence of appendicolith in the distal appendix. No inflammation. Scattered fecal material in a nondistended, nondilated colon. Diverticulosis, without evidence of diverticulitis, in the left hemicolon. There is atherosclerosis and eccentric thrombus, along with aneurysmal dilatation, along the infrare nal abdominal aorta. The largest area of aneurysmal dilatation measures 6.5 cm mediolateral x 5.6 c m anterior-posterior (previously measuring 6.5 x 5.4 cm). A second area of aneurysmal dilatation me asures 5.4 x 5.2 cm (previously measuring 5.5 x 5.2 cm). PELVIS: No mass, lymphadenopathy, free air, or free fluid. Evaluation is limited by beam attenuati on artifact due to a left hip prosthesis. No osteoblastic or osteolytic lesions. IMPRESSION 1. No acute abnormality within the abdomen or pelvis. 2. Indeterminate masses in the left and right kidney. &a-1R&a+25V*p+0X*l6497K*c202B*c15G*c2P*p-0X&a-25V&a+1R Name: Jonathan Kauffman Isaias CHACON : 1960 M56 MedRec: [id number] AcctNum: [id number] Prepared: MonApr 22, 2016 22:55 by Interface Page 13 of 17 pMD [facility] EMERGENCY RECORD 3. Stable appearance of an aneurysm involving the abdominal aorta. POS: [facility] . (15:41 SHAN) LABORATORY: CBC with Differential Collection DT: MonApr 22, 2016 13:29, White Blood Cell (WBC) Count 6.2 thou/uL, Range (4.8-10.8), Red Blood Cell (RBC) Count 5.52 mill/uL, Range (4.70-6.10), Hemoglobin 15.3 g/dL, Range (14.0-18.0), Hematocrit 48.8 %, Range (42.0-52.0), Mean Corpuscular Volume 88.3 fl, Range (80.0-94.0), Mean Corpuscular Hemoglobin 27.6 pg, Range (27.0-31.0), *Mean Corpuscular HGB CONC 31.3 - L g/dL, Range (32.0-36.0), RBC Distribution Width 12.6 %, Range (11.5-14.5), Platelet Count 245 thou/uL, Range (130-400), Mean Platelet Volume 8.8 fL, Range (7.4-10.4), %Neutrophils 70.7 %, Range (42.0-75.0), *%Lymphocytes 13.7 - L %, Range (21.0-51.0), %Monocytes 9.9 %, Range (0.0-10.0), %Eosinophils 3.0 %, Range (0.0-10.0), *%Basophils 2.6 - H %, Range (0.0-1.0), #Neutrophils 4.4 thou/uL, Range (1.40-6.50), *#Lymphocytes 0.9 - L thou/uL, Range (1.20-3.40), *#Monocytes 0.6 - H thou/uL, Range (0.11-0.59), #Eosinphils 0.2 thou/uL, Range (0.0-0.7), #Basophils 0.2 thou/uL, Range (0.0-0.2). (14:00 [facility]) MICROBIOLOGY: Strep Group A Screen: [id number] Collection DT: MonApr 22, 2016 15:20, See comment below , @ ER ROOM#: [id number] Source: Throat Spec Desc: PENDING, *Rapid Strep Screen:Throat Positive - H . (15:41 [facility]) LABORATORY: Drug Screen, Urine Collection DT: MonApr 22, 2016 15:15, *THC/Cannabinoid Screen Detected - H , Range (NotDetected), Phencyclidine (PCP) Not Detected , Range (NotDetected), Cocaine Metabolite Screen Not Detected , Range (NotDetected), Methamphetamine Not Detected , Range (NotDetected), *Opiate Screen Detected - H , Range (NotDetected), Amphetamine Not Detected , Range (NotDetected), Benzodiazepine Screen Not Detected , Range (NotDetected), Tricyclic Screen Not Detected , Range (NotDetected), Methadone Not Detected , Range (NotDetected), Barbiturates Screen Not Detected , Range (NotDetected), Oxycodone Screen Not Detected , Range (NotDetected), Propoxyphene Screen Not Detected , Range (NotDetected), Drug Screen Cutoff , Range (), The [employer] Profile-V Panel for Qualitative Drugs of Abuse assays are for, presumptive screening testing only. The drug class and detection limits, are as follows: &a-1R&a+25V*p+0X*m8894T*c202B*c15G*c2P*p-0X&a-25V&a+1R Name: Daly Jonathan Isaias CHACON : 1960 M56 MedRec: [id number] AcctNum: [id number] Prepared: MonApr 22, 2016 22:55 by Interface Page 14 of 17 pMD [facility] EMERGENCY RECORD Drug Class Detection Limit Amphetamine , 500 ng/mL* Barbiturates 200 ng/mL , Benzodiazepines 150 ng/mL* Cocaine 150 ng/mL*, Methamphetamine 500 ng/mL* Methadone 200, ng/mL* Opiates 100 ng/mL* Oxycodone , 100 ng/mL PCP 25 ng/mL Propoxyphene , 300 ng/mL Tricyclic Antidepressants 300 ng/mL Cannabinoids (THC) , 50 ng/mL Tests which yield a presumptive positive result must be , tested using a more specific alternate chemical method in order to obtain, a confirmed analytical result. Additional confirmation and identification, may be ordered on a routine basis, if desired. Presumptive positive urines, are held for two weeks. . (15:41 SHAN) MICROBIOLOGY: Influenza A&B Ag Screen: [id number] Collection DT: MonApr 22, 2016 14:00, See comment below , @ ER ROOM#: [id number] Source: Nasal swab Spec Desc: , Influenza A Antigen: NEGATIVE for the , presence of , INFLUENZA A Antigen , Influenza B Antigen: NEGATIVE for the , presence of , INFLUENZA B Antigen , The rapid Flu A&B test can distinguish between influenza A , Influenza A&B Ag Screen See comment below , and B viruses, but it does not differentiate influenza , Influenza A&B Ag Screen See comment below , subtypes. , Influenza A&B Ag Screen See comment below , Influenza A&B Ag Screen See comment below , Influenza A&B Ag Screen See comment below , Influenza A&B Ag Screen See comment below , characteristics of this device with human specimens infected , Influenza A&B Ag Screen See comment below , with the 2008 H1N1 influenza virus have not been , Influenza A&B Ag Screen See comment below , established. For example: this test cannot distinguish , Influenza A&B Ag Screen See comment below , influenza infections caused by novel H1N1 influenza A , Influenza A&B Ag Screen See comment below , viruses versus seasonal influenza A viruses. , &a-1R&a+25V*p+0X*w5944O*c202B*c15G*c2P*p-0X&a-25V&a+1R Name: Daly Jonathan Isaias CHACON : 1960 M56 MedRec: [id number] AcctNum: [id number] Prepared: MonApr 22, 2016 22:55 by Interface Page 15 of 17 pMD [facility] EMERGENCY RECORD Influenza A&B Ag Screen See comment below , , Influenza A&B Ag Screen See comment below , A negative result does not exclude influenza virus , Influenza A&B Ag Screen See comment below , infection; therefore, if more conclusive testing is desired, , Influenza A&B Ag Screen See comment below , follow up confirmatory testing is warranted., Influenza A&B Ag Screen See comment below . (15:41 TERRY) LABORATORY: Lactic Acid Collection DT: MonApr 22, 2016 13:58, Lactic Acid 1.7 mmol/L, Range (0.5-2.2). (15:41 SHAN) CRP (Inflammatory) Collection DT: MonApr 22, 2016 13:29, *CRP (Inflammatory) 2.45 - H mg/dL, Range (= or < 0.5). (15:41 TERRY) Drug Screen, Blood Collection DT: MonApr 22, 2016 13:29, *Acetaminophen Less than 3.0 - L mcg/mL, Range (10.0-30.0), Therapeutic Range: 10.0 - 30.0 ug/mL Toxic Range: Possible, toxicity: 150 - 200 ug/mL Probable toxicity: Greater than 200, ug/mL *IMPORTANT TESTING INFORMATION* The half-life of NAC is 2, hours. The total NAC clearance is 5.6 hours for adults and 11 hours for, Newborns. Testing acetaminophen levels prior to a reasonable time frame, for clearance can cause falsely decreased acetaminophen levels. , Alcohol Less than 10 mg/dL, Range (Less than 10), The pharmacological response to blood alcohol levels may vary from, individual to individual. Negative: Less than 10, mg/dL Toxic: 50 - 100 mg/dL , Depression of SPINDLE PLUMBER: Greater than 100 mg/dL , Fatalities reported: Greater than 400 mg/dL , *Salicylate Less than 5.0 - L mg/dL, Range (15.0-30.0). (15:41 TERRY) Comprehensive Metabolic Panel Collection DT: MonApr 22, 2016 13:29, Sodium 137 mmol/L, Range (136-145), Potassium 3.9 mmol/L, Range (3.5-5.1), Chloride 104 mmol/L, Range (98-107), Carbon Dioxide 22 mmol/L, Range (22-29), Anion Gap 15 mmol/L, Range (10-20), BUN (Urea Nitrogen) 9 mg/dL, Range (8.4-25.7), Creatinine 1.29 mg/dL, Range (0.7-1.3), Estimated GFR-MDRD 58 , Reference Range for Estimated GFR: &a-1R&a+25V*p+0X*f9739G*c202B*c15G*c2P*p-0X&a-25V&a+1R Name: Jonathan Kauffman JR : 1960 M56 MedRec: [id number] AcctNum: [id number] Prepared: MonApr 22, 2016 22:55 by Interface Page 16 of 17 pMD [facility] EMERGENCY RECORD Greater than 90, mL/min/1.73 m2 NOTE: The MDRD equation has not been validated for use, with the elderly (over 70 years of age), women, patients with, serious comorbid condition or persons with extremes of body size, muscle, mass, or nutritional status. , Glucose 79 mg/dL, Range (70-105), Calcium 9.0 mg/dL, Range (7.8-10.44), Bilirubin, Total 0.4 mg/dL, Range (0.2-1.2), Protein, Total 7.1 g/dL, Range (6.0-8.3), NOTE: Plasma values are generally 0.3 to 0.5 g/dL higher than serum values, due to the presence of fibrinogen. , Albumin 3.8 g/dL, Range (3.5-5.0), Globulin 3.3 g/dL, Range (2.4-3.5), Alb/Glob Ratio 1.2 g/dL, Range (1.2-2.2), Alkaline Phosphatase 53 U/L, Range (40-150), AST (SGOT) 18 U/L, Range (5-34), ALT (SGPT) 14 U/L, Range (0-55). (15:41 TERRY) Hackett: CHRIS=ANDRES Bates, Mara STEWART=MD Nico, Jose &a-1R&a+25V*p+0X*e5054Y*c202B*c15G*c2P*p-0X&a-25V&a+1R Name: Jonathan Kauffman JR : 1960 M56 MedRec: [id number] AcctNum: [id number] Prepared: MonApr 22, 2016 22:55 by Interface Page 17 of 17 pMD MTDD
== END 2016-04-22 17:35 | disposition home or self-care (01) ==
LOC: NAV ERS 12:58
DX: J02.0 Streptococcal pharyngitis (principal); I71.4 Abdominal aortic aneurysm, without rupture; K57.92 Diverticulitis of intestine, part unspecified, without perforation or abscess without bleeding; I10 Essential (primary) hypertension; I11.0 Hypertensive heart disease with heart failure; I50.9 Heart failure, unspecified; I25.10 Atherosclerotic heart disease of native coronary artery without angina pectoris; I25.2 Old myocardial infarction; Z96.642 Presence of left artificial hip joint; Z95.1 Presence of aortocoronary bypass graft; Z79.2 Long term (current) use of antibiotics; Z79.82 Long term (current) use of aspirin; Z79.52 Long term (current) use of systemic steroids; Z79.899 Other long term (current) drug therapy
CPT/HCPCS: 71020; 74177; 80053; 80307; 81001; 83605; 85025; 86140; 87040; 87430; 94760; 96361; 96365; 96375; G0478; G0479; J0696; J1170; J2550; J7050

== ENCOUNTER 2016-05-14 14:18 | Emergency (ER) | payer OTHER ==
[2016-05-14] MEDS ORDERED: HYDROcodone/Acetaminophen 5/325 mg Tablet ONE (15:10)
[2016-05-14] MEDS ORDERED: metroNIDAZOLE 500 MG/100 ML BAG ONE (15:17)
[2016-05-14] MEDS ORDERED: Cipro 250 MG TAB ONE (15:17)
[2016-05-14] MEDS ORDERED: Ciprofloxacin 500 MG TAB ONE (15:17)
[2016-05-14] MEDS ORDERED: Ondansetron ODT 4 MG TAB ONE (15:18)
[2016-05-14 15:19] LABS: Bilirubin Negative (Negative); Blood, Urine Trace (Negative); Glucose, Urine (Dipstick) Negative (Negative); Ketone, Urine Negative (Negative); Nitrite Negative (Negative); Protein, Urine (Dipstick) Negative (Neg-Trace); Urobilinogen 0.2 mg/dL (0.2-1.0)
[2016-05-14 15:21] LABS: Band 3 % (5-11); Hematocrit 45.4 % (42.0-52.0); Mean Platelet Volume 7.7 fL (7.4-10.4); Neutrophil 72 % (42-75); Red Blood Cell (RBC) Count 5.38 mill/uL (4.70-6.10); White Blood Cell (WBC) Count 9.9 thou/uL (4.8-10.8)
[2016-05-14 15:24] LABS: ALT (SGPT) 28 U/L (0-55); AST (SGOT) 16 U/L (5-34); Alkaline Phosphatase 64 U/L (40-150); Anion Gap 13 mmol/L (10-20); BUN (Urea Nitrogen) 10 mg/dL (8.4-25.7); Bilirubin, Total 0.4 mg/dL (0.2-1.2); Calc. Creatinine Clearance 0 mL/min (70-130); Calcium 9.1 mg/dL (7.8-10.44); Carbon Dioxide 18 mmol/L (22-29); Chloride 109 mmol/L (98-107); Estimated GFR-MDRD 78; Globulin 3.1 g/dL (2.4-3.5); Protein, Total 6.8 g/dL (6.0-8.3)
[2016-05-14 15:25] LABS: Bacteria/HPF Rare-Few HPF (None Seen); RBC/HPF 0-3 HPF (0-3); Squamous Epithelial None Seen HPF (0-3); WBC/HPF None Seen HPF (0-3)
[2016-05-14 15:25] LABS: Troponin I Less than 0.010 ng/mL (< 0.028)
--- NOTE | 2016-05-14 16:18 | RAD ---
EXAM CHEST TWO VIEWS 05/14/16 COMPARISON: 04/22/16 HISTORY: Cough. FINDINGS: Two views chest. Stable sternotomy wires. Slight elongation of the aorta. Normal cardiac silhouette. Pulmonary vessels and hilum are normal. Costophrenic angles are clear. No masses or consolidation. No pneumothorax or osseous abnormalities. IMPRESSION: No acute cardiopulmonary process. POS: [facility]
[2016-05-14] MEDS ORDERED: Mag-Al Plus 1200 MG/1200 MG/120 MG/30 ML UDCUP ONE (17:05)
[2016-05-14] MEDS ORDERED: Lidocaine Viscous Sol 2% 15 ml UD Cup ONE (17:05)
--- NOTE | 2016-05-14 18:51 | PICIS ---
[facility] EMERGENCY RECORD TRIAGE (14:22 EPIE) TRIAGE NOTES: Pt reports being sick with different diseases this past month. Pt reports coughing. Pt reports AAA surgery in one week. Pt reports CP and abdominal pain (decreased appetite). (14:22 EPIE) PATIENT: NAME: Jonathan Kauffman JR, AGE: 56, GENDER: male, : Sat 1960, TIME OF GREET: Sat May 14, 2016 14:19, PREFERRED LANGUAGE: Estonian, ETHNICITY: Not or , ECODE BILLING MAP: [facility], SSN: [id number], Zip Code: [address], KG WEIGHT: 115.67, PHONE: , , , PERSON ID: [id number], PCP: Gabino [facility]. (14:22 EPIE) COMPLAINT: HIGH RISK COMPLAINT: Chest Pain. (14:22 EPIE) ADMISSION: URGENCY: 2 Emergent, ADMISSION SOURCE: Home, TRANSPORT: CAR, BED: TRIAGE. (14:22 EPIE) TRIAGE SCREENING: Patient denies suicidal ideation, Patient denies presence of domestic violence. (14:33 EPIE) TREATMENTS IN PROGRESS: Treatments given Prehospital: none. (14:33 EPIE) PROVIDERS: TRIAGE NURSE: Yessica Ronquillo RN. (14:22 EPIE) VITAL SIGNS: BP 160/96, Pulse 72, Resp 22, Temp 97.0, (Oral), O2 Sat 96, on Room Air, Time 05/14/2016 14:20. (14:20 EPIE) PREVIOUS VISIT ALLERGIES: Avelox. (14:22 EPIE) Avelox. (14:33 EPIE) KNOWN ALLERGIES Avelox CURRENT MEDICATIONS (14:44 EPIE) Advair Diskus: BLISTER, WITH INHALATION DEVICE : Strength - 500 mcg-50 mcg/Dose : INHALATION Patient Dose: 1 inhalation Inhaler 2 times a day.prn. meTOPROLOL tartrate: TABLET : Strength - 50 mg : ORAL Patient Dose: 25 mg Oral 2 times a day. aspirin: TABLET : Strength - 325 mg : ORAL Patient Dose: 1 tab(s) Oral once a day. atorvastatin: TABLET : Strength - 20 mg : ORAL Patient Dose: 20 mg Oral once a day (at bedtime). VITAL SIGNS VITAL SIGNS: BP: 160/96, Pulse: 72, Resp: 22, Temp: 97.0 (Oral), O2 sat: 96 on Room Air, Time: 05/14/2016 14:20. (14:20 EPIE) BP: 123/81, Pulse: 67, Resp: 22, O2 sat: 97 on Room Air, Time: 05/14/2016 14:30. (14:30 EPIE) BP: 116/75, Pulse: 64, Resp: 18 (Non-Labored), Pain: 6, O2 sat: 96 on Room Air, Time: 05/14/2016 15:30. (15:30 EPIE) &a-1R&a+25V*p+0X*l0639V*c202B*c15G*c2P*p-0X&a-25V&a+1R Name: DalyJonathan JR : 1960 M56 MedRec: [id number] AcctNum: [id number] Prepared: Sat May 14, 2016 18:14 by Interface Page 1 of 13 pMD [facility] EMERGENCY RECORD BP: 122/65, Pulse: 58, Resp: 18 (Non-Labored), Pain: 5, O2 sat: 97 on Room Air, Time: 05/14/2016 16:00. (16:00 EPIE) BP: 114/60, Pulse: 66, Resp: 18 (Non-Labored), O2 sat: 97 on Room Air, Time: 05/14/2016 16:30. (16:30 EPIE) BP: 121/78, Pulse: 57, Resp: 18 (Non-Labored), Pain: 4, O2 sat: 97 on Room Air, Time: 05/14/2016 17:00. (17:00 EPIE) BP: 107/58, Pulse: 50, Resp: 18 (Non-Labored), Pain: 4, O2 sat: 96 on Room Air, Time: 05/14/2016 17:30. (17:30 EPIE) BP: 120/84, Pulse: 62, Resp: 18, Temp: 97.4 ORAL, Pain: 4, O2 sat: 96 on ra, Time: 05/14/2016 18:02. (18:02 EPIE) NURSING ASSESSMENT: FALL RISK (14:38 EPIE) FALL RISK: Fall risk assessment findings include: no history of falls (0), No bed rest greater than 2 days (0), No use of level of consciousness altering agents with mentation or cognitive changes (0), No change in blood pressure (0), No sensory deficits (0), No impaired mobility (0), No neurologic diagnosis (0), No elimination problems (0), No confusion (0), Total score 0, No risk for fall. NURSING ASSESSMENT: HEAD-TO-TOE CONSTITUTIONAL: Patient arrives ambulatory, Gait steady, History obtained from patient, Patient appears, uncomfortable, Patient cooperative, Patient alert, Oriented to person, place and time, Skin warm, Skin dry, Skin normal in color, Mucous membranes pink, Mucous membranes moist, Patient is well-groomed, Pt reports being sick with different diseases this past month. Pt reports coughing. Pt reports AAA surgery in one week. Pt reports CP and abdominal pain (decreased appetite). This month, pt diagnosed with diverticulitis, AAA, and strep throat. (14:34 EPIE) PAIN: aching pain, HEADACHE, ABDOMINAL PAIN, INTERMITTENT SHARP MIDSTERNAL CHEST PAIN, on a scale 0-10 patient rates pain as 6. (15:38 EPIE) NEURO: Able to close eyes, Face symmetrical, Speech normal, GCS:, Eye opening: (4) - Spontaneous, Verbal: (5) - Oriented/conversive, Motor: (6) - Obeys commands/Spontaneous, GCS Total: 15. (14:34 EPIE) RESPIRATORY/CHEST: Breath sounds clear, Respiratory assessment findings include respiratory effort easy, Respirations regular, Conversing normally, Neck and chest exam findings include trachea midline, Chest expansion equal, Chest movement symmetrical, Associated with cough, productive of, clear sputum. (14:34 EPIE) CARDIOVASCULAR: Cardiovascular assessment findings include heart rate normal, Heart sounds normal, S1, S2. (14:34 EPIE) ABDOMEN: Abdomen assessment findings include abdomen symmetrical, Abdomen, distended, tender, diffusely, Associated with nausea, Associated with vomiting, history of vomiting, Associated with appetite change, decrease. (14:34 &a-1R&a+25V*p+0X*r3482D*c202B*c15G*c2P*p-0X&a-25V&a+1R Name: Jonathan Kauffman JR : 1960 M56 MedRec: [id number] AcctNum: [id number] Prepared: Sat May 14, 2016 18:14 by Interface Page 2 of 13 pMD [facility] EMERGENCY RECORD EPIE) GENITOURINARY MALE: no associated urinary complaints. (14:34 EPIE) NURSING ASSESSMENT: SKIN (14:38 EPIE) SKIN: Skin assessment findings include skin warm, Skin dry, Skin normal in color, Notes: SKin is clean, dry, and intact. NURSING PROCEDURE: BEDSIDE SIRS TESTING (15:40 EPIE) SCORES: Heart Rate 55-109 (0), Temp range 96.8-101.1 (0), respiratory rate 12-24 (0), Latest WBC 3-14.9 (0), Mental Status altered: no (0), Infection or Suspected Infection: No. NURSING PROCEDURE: SKIN DIVING TEACHER (14:33 EPIE) SKIN DIVING TEACHER: Patient placed on rn cardiac rehab, Patient placed on non-invasive blood pressure monitor, with disposable blood pressure cuff applied, Patient placed on continuous pulse oximetry, Adult/pediatric oxisensor applied. FOLLOW-UP: After procedure, alarms set and on, After procedure, patient tolerating monitoring. NURSING PROCEDURE: DISCHARGE NOTE (18:02 EPIE) DISCHARGE: Patient discharged to home, ambulating without assistance, family driving, accompanied by //partner, Summary of Care printed/ provided, Discharge instructions given to patient, Simple or moderate discharge teaching performed, Prescriptions given and instructions on side effects given, Name of prescription(s) given: cipro, metronidazole, norco, zofran odt, Above person(s) verbalized understanding of discharge instructions and follow-up care. BELONGINGS: Belongings and valuables with patient upon arrival to the Emergency Department include:, Belongings and valuables with patient at time of discharge include:, Belongings remain with patient, Valuables remain with patient. VITAL SIGNS: BP: 120, / 84, Pulse: 62, Resp: 18, Temp: 97.4 ORAL, Pain: 4, O2 sat: 96, on: ra. NURSING PROCEDURE: EKG CHART (14:28 EPIE) EK lead EKG performed on the left chest, done by Ria CAMPOS, first EKG. FOLLOW-UP: After procedure, EKG for interpretation given to Dr. Michael TREJO. NURSING PROCEDURE: IV PATIENT IDENITIFIER: Patient actively involved in identification process, Patient's identity verified by patient stating name, Patient's identity verified by hospital ID braferoz. (14:59 EPIE) IV SITE 1: IV established, in two attempts, Unable to obtain IV access, Blood cultures drawn at time of placement, labeled in the presence of the patient and sent to lab. (14:42 BDON) &a-1R&a+25V*p+0X*j3755K*c202B*c15G*c2P*p-0X&a-25V&a+1R Name: Jonathan Kauffman JR : 1960 M56 MedRec: [id number] AcctNum: [id number] Prepared: Sat May 14, 2016 18:14 by Interface Page 3 of 13 pMD [facility] EMERGENCY RECORD IV established, to the right antecubital, using a 20 gauge catheter, in one attempt, IV site prepped with chloroprep, Saline lock established, Flushed with normal saline (mls): 10, Labs drawn at time of placement, labeled in the presence of the patient and sent to lab. (14:59 EPIE) FOLLOW-UP SITE 1: After procedure, no drainage at IV site, After procedure, no swelling at IV site, After procedure, no redness at IV site. (14:59 EPIE) NOTES: Notes: IV DC with catheter intact. Pressure and dressing applied. (18:03 EPIE) NURSING PROCEDURE: NURSE NOTES NURSES NOTES: Notes: Patient resting with family at bedside. RR even and unlabored. No new complaints at this time. IV antibiotics infusing at this time. (15:39 EPIE) Notes: Patient resting with family at bedside. RR even and unlabored. No new complaints at this time. IV antibiotics infusing. Pt states he is feeling better at this time. Pt repositioned for comfort and given pillow. (16:01 EPIE) Notes: Patient resting with family at bedside. RR even and unlabored. No new complaints at this time. Pt reports decrease in abdominal pain but now has heartburn. ERMD made aware. Pt given GI cocktail. Awaiting second xray. (17:09 EPIE) NURSING PROCEDURE: TRANSPORT TO TESTS PATIENT IDENTIFIER: Patient actively involved in identification process, Patient's identity verified by patient stating name, Patient's identity verified by hospital ID bracelet. (14:58 EPIE) TRANSPORT TO TESTS: Patient transported to x-ray, via cart, Accompanied by x-ray denture technician. (14:58 EPIE) Patient transported to x-ray, via cart, Accompanied by x-ray denture technician. (17:15 EPIE) FOLLOW-UP: After procedure, patient returned to emergency department. (17:28 EPIE) NURSING PROCEDURE: URINE COLLECTION (15:15 EPIE) PATIENT IDENTIFIER: Patient actively involved in identification process, Patient's identity verified by patient stating name, Patient's identity verified by hospital ID bracelet. URINE COLLECTION MALE: Urine collected by void, output amount (mL) 300, urine yellow in color, and clear, Specimen labeled in the presence of the patient and sent to lab. ORDER DETAILS Order Name: Cardiac Profile w/CKMB & Troponin - I, Status: Active, Time: 14:48 05/14/2016, User: ARIN, - Ordered for: MD Rodriguez Sam, - Entered by: MD Rodriguez Sam - Sat May 14, 2016 14:48, - Quantity: 1, &a-1R&a+25V*p+0X*q6733U*c202B*c15G*c2P*p-0X&a-25V&a+1R Name: Jonathan Kauffman JR : 1960 M56 MedRec: [id number] AcctNum: [id number] Prepared: Sat May 14, 2016 18:14 by Interface Page 4 of 13 D [facility] EMERGENCY RECORD Order Name: CBC with Differential, Status: Active, Time: 14:48 05/14/2016, User: ARIN, - Ordered for: MD Rodriguez Sam, - Entered by: MD Rodriguez Sam - Sat May 14, 2016 14:48, - Quantity: 1, Order Name: Comprehensive Metabolic Panel, Status: Active, Time: 14:48 05/14/2016, User: ARIN, - Ordered for: MD Rodriguez Sam, - Entered by: MD Rodriguez Sam - Sat May 14, 2016 14:48, - Quantity: 1, Order Name: EKG 12 Lead in Emergency Room, Status: Active, Time: 14:48 05/14/2016, User: SROB, - Ordered for: MD Rodriguez Sam, - Entered by: MD Rodriguez Sam - Sat May 14, 2016 14:48, - Quantity: 1, Order Name: SALINE LOCK, Status: Done, Time: 14:59 05/14/2016, User: EPIE, - Ordered for: MD Rodriguez Sam, - Entered by: MD Rodriguez Sam - Sat May 14, 2016 14:48, - Quantity: 1, Order Name: Urinalysis w/ Rflx Microscopic, Status: Active, Time: 14:48 05/14/2016, User: SROB, - Ordered for: MD Rodriguez Sam, - Entered by: MD Rodriguez Sam - Sat May 14, 2016 14:48, - Quantity: 1, Order Name: XR Abdomen 2 View/1 View Cxr, Status: Canceled, Time: 17:26 05/14/2016, User: System, - Ordered for: MD Rodriguez Sam, - Entered by: MD Rodriguez Sam - Sat May 14, 2016 16:58, - Quantity: 1, Order Name: XR Chest Pa & Lat STANDARD, Status: Active, Time: 14:48 05/14/2016, User: SROB, - Ordered for: MD Rodriguez Sam, - Entered by: MD Rodriguez Sam - Sat May 14, 2016 14:48, - Quantity: 1. MEDICATION ADMINISTRATION SUMMARY Drug Name: GI COCKTAIL - WHITE, Dose Ordered: 40 mL, Route: Oral, Status: Given, Time: 17:09 05/14/2016, Drug Name: [place], Dose Ordered: 5/325 mg, Route: Oral, Status: Given, Time: 15:30 05/14/2016, Drug Name: Cipro tablet, Dose Ordered: 750 mg, Route: Oral, Status: Given, Time: 15:29 05/14/2016, Drug Name: Flagyl RTU intravenous piggyback, Dose Ordered: 500 mg, Route: IV Piggy Back, Status: Given, Time: 15:29 05/14/2016, Drug Name: Zofran ODT, Dose Ordered: 4 mg, Route: Sublingual, Status: Given, Time: 15:25 05/14/2016, Detailed record available in Medication Service section. &a-1R&a+25V*p+0X*c4031V*c202B*c15G*c2P*p-0X&a-25V&a+1R Name: Jonathan Kauffman JR : 1960 M56 MedRec: [id number] AcctNum: [id number] Prepared: Sat May 14, 2016 18:14 by Interface Page 5 of 13 pMD [facility] EMERGENCY RECORD MEDICATION SERVICE Cipro tablet: Order: Cipro tablet (ciprofloxacin HCl) - Dose: 750 mg : Oral POTENTIAL ALLERGY REACTION: 'Avelox [moxifloxacin/moxifloxacin HCl]' - Not a true drug allergy, Reviewed with patient, Taking Cipro now. Schedule: Now Ordered by: Harvinder Rodriguez MD Entered by: Harvinder Rodriguez MD Sat May 14, 2016 15:12 , Acknowledged by: Yessica Ronquillo RN Sat May 14, 2016 15:16 Documented as given by: Yessica Ronquillo RN Sat May 14, 2016 15:29 Patient, Medication, Dose, Route and Time verified prior to administration. Amount given: 750mg, Site: Medication administered P.O., Correct patient, time, route, dose and medication confirmed prior to administration, Patient advised of actions and side-effects prior to administration, Allergies confirmed and medications reviewed prior to administration, Pt states that he has taken Cipro before and has not had any reverse reactions. Flagyl RTU intravenous piggyback: Order: Flagyl RTU intravenous piggyback (metronidazole/sodium chloride) - Dose: 500 mg : IV Piggy Back Schedule: Now Ordered by: Harvinder Rodriguez MD Entered by: Harvinder Rodriguez MD Sat May 14, 2016 15:10 , Acknowledged by: Yessica Ronquillo RN Sat May 14, 2016 15:16 Documented as given by: Yessica Ronquillo RN Sat May 14, 2016 15:29 Patient, Medication, Dose, Route and Time verified prior to administration. Amount given: 500mg, IV SITE #1 IVPB or drip, initial infusion, Premixed, via primary tubing, on an IV pump, at 100 ml/hr, Catheter placement confirmed via flush prior to administration, IV site without signs or symptoms of infiltration during medication administration, No swelling during administration, No drainage during administration, IV flushed after administration, Correct patient, time, route, dose and medication confirmed prior to administration, Patient advised of actions and side-effects prior to administration, Allergies confirmed and medications reviewed prior to administration. : Follow Up : Response assessment performed, No signs or symptoms of allergic reaction noted, _IV SITE #1:_, Medication infusion discontinued, on Sat May 14, 2016 16:35, Total infusion time IV site 1 1 hour, 10 minutes, ., Total amount infused: 100ml, IV Line flushed after administration. (16:51 EPIE) GI COCKTAIL - WHITE: Order: GI COCKTAIL - WHITE - Dose: 40 mL : Oral Lidocaine Viscous (lidocaine HCl) [10 mL] MAG-AL (magnesium hydroxide/aluminum hydroxide) [30 mL] Schedule: Now Ordered by: Harvinder Rodriguez MD Entered by: Harvinder Rodriguez MD Sat May 14, 2016 16:59 Documented as given by: Yessica Ronquillo RN Sat May 14, 2016 17:09 &a-1R&a+25V*p+0X*r4000M*c202B*c15G*c2P*p-0X&a-25V&a+1R Name: Jonathan Kauffman : 1960 M56 MedRec: [id number] AcctNum: [id number] Prepared: Sat May 14, 2016 18:14 by Interface Page 6 of 13 pMD [facility] EMERGENCY RECORD Patient, Medication, Dose, Route and Time verified prior to administration. Amount given: 40ml, Site: Medication administered P.O., Correct patient, time, route, dose and medication confirmed prior to administration, Patient advised of actions and side-effects prior to administration, Allergies confirmed and medications reviewed prior to administration. [place]: Order: [place] (hydrocodone bitartrate/acetaminophen) - Dose: 5/325 mg : Oral Schedule: Now Ordered by: Harvinder Rodriguez MD Entered by: Harvinder Rodriguez MD Sat May 14, 2016 15:09 , Acknowledged by: Yessica Ronquillo RN Sat May 14, 2016 15:09 Documented as given by: Yessica Ronquillo RN Sat May 14, 2016 15:30 Patient, Medication, Dose, Route and Time verified prior to administration. Amount given: 5/325mg, Site: Medication administered P.O., Patient appears Awake and alert- acceptable, Correct patient, time, route, dose and medication confirmed prior to administration, Patient advised of actions and side-effects prior to administration, Allergies confirmed and medications reviewed prior to administration. Zofran ODT: Order: Zofran ODT (ondansetron) - Dose: 4 mg : Sublingual Schedule: Now Ordered by: Harvinder Rodriguez MD Entered by: Harvinder Rodriguez MD Sat May 14, 2016 15:19 Documented as given by: Yessica Ronquillo RN Sat May 14, 2016 15:25 Patient, Medication, Dose, Route and Time verified prior to administration. Amount given: 4mg, Site: Medication administered S.L., Correct patient, time, route, dose and medication confirmed prior to administration, Patient advised of actions and side-effects prior to administration, Allergies confirmed and medications reviewed prior to administration. HPI ABDOMINAL PAIN (14:50 SROB) CHIEF COMPLAINT: Patient presents for evaluation of abdominal pain, Patient presents for evaluation of abdominal bloating. HISTORIAN: History provided by patient, This patient presents with a complex story which began with bad bronchial infectoin starting 3 months ago, and evolving in the last month into several bouts of diverticulitis. He was released from his second hospital stay on and completed the Augmentin and metronidazole. However, he started having recurrent abdominal pain and found sonkendall Martinez he started taking 3 days ago.It initially seemed tohelp but today seems to be worse as well as having some "shooting pains in his chest, upper abdomen and neck for the last 6 hours. The pains are not steady or persistent. LOCATION MALE: Symptoms are localized, most severe in the left upper quadrant. QUALITY: Pain &a-1R&a+25V*p+0X*i2032Q*c202B*c15G*c2P*p-0X&a-25V&a+1R Name: DalyJonathan JR : 1960 M56 MedRec: [id number] AcctNum: [id number] Prepared: Sat May 14, 2016 18:14 by Interface Page 7 of 13 pMD [facility] EMERGENCY RECORD is sharp in nature, described as stabbing. SEVERITY: Maximum severity of symptoms moderate, Currently symptoms are moderate. TIME COURSE: Gradual onset of symptoms, Date and time of onset was 05/11/2016 14:56, Initially improved but now it is worsening again. ASSOCIATED WITH: Associated with recent antibiotic use, for 3 days, Antibiotic Cipro, Associated with loss of appetite, for 5 days. RELIEVED BY: Patient's condition relieved by prescription medications. RISK FACTORS MALE: Coronary artery disease risk factors, include high cholesterol, include hypertension. ROS (14:59 SROB) CONSTITUTIONAL: Historian denies chills, denies fever, denies malaise, denies weakness. EYES: Historian denies eye redness, denies eye discharge. ENT: Historian denies epistaxis, denies otalgia, denies rhinorrhea, denies sore throat. CARDIOVASCULAR: Historian reports chest pain, He describes chest pain as shooting pain. RESPIRATORY: Historian denies cough, denies shortness of breath. GI: Historian denies abdominal pain, denies diarrhea, denies nausea, denies vomiting. GENITOURINARY MALE: Historian denies dysuria, denies hematuria, denies urinary frequency, denies urinary urgency. MUSCULOSKELETAL: Historian denies neck pain. SKIN: Historian denies cellulitis, denies rash. NEUROLOGIC: Historian denies dizziness, denies headache. ENDOCRINE: Historian denies polydipsia, denies polyuria. PAST MEDICAL HISTORY (14:33 EPIE) MEDICAL HISTORY: Past medical history includes history of hyperlipidemia, musculoskeletal disorder. osteoarthritis, Notes: AAA - dx'd , Past medical history includes gastrointestinal disease, diverticulitis, Past medical history includes endocrine disease, adrenal insufficiency, Past medical history includes collagen vascular disease, chronic sinusitis, CHF, history of hypertension. cardiac history, coronary artery disease, myocardial infarction (2009), pulmonary disease, POSSIBLE chronic obstructive pulmonary disease. MALE SURGICAL HISTORY: Surgical history of orthopedic surgery, LEFT HIP REPLACEMENT, hernia repair, sinus surgery, heart cath. Surgical history of coronary artery bypass graft surgery, three vessels. PSYCHIATRIC HISTORY: No previous psychiatric history. SOCIAL HISTORY: Patient denies alcohol use, Patient denies drug use, Patient currently uses tobacco, smokes cigarettes, "occasional cigarette". &a-1R&a+25V*p+0X*v3887D*c202B*c15G*c2P*p-0X&a-25V&a+1R Name: Jonathan Kauffman JR : 1960 M56 MedRec: [id number] AcctNum: [id number] Prepared: Sky May 14, 2016 18:14 by Interface Page 8 of 13 pMD [facility] EMERGENCY RECORD PHYSICAL EXAM CONSTITUTIONAL: Vital signs reviewed, Patient alert and oriented to person, place and time. (14:59 SROB) HEAD: Head exam included findings of head atraumatic, normocephalic. (14:59 SROB) EYES: Pupils equally round and reactive to light, Extraocular muscles intact, Conjunctiva normal. (14:59 SROB) ENT: Ear exam normal, Nose exam normal, Pharynx exam normal. (14:59 SROB) NECK: Neck exam included findings of normal range of motion, Trachea midline, no jugular venous distention. (14:59 SROB) RESPIRATORY CHEST: Respiratory exam included findings of no respiratory distress, Breath sounds clear, No wheezing, No rales, No rhonchi. (14:59 SROB) CARDIOVASCULAR: Cardiovascular exam included findings of heart rate regular rate and rhythm, Heart sounds normal, normal S1, normal S2, no murmurs. (14:59 SROB) ABDOMEN MALE: Abdominal exam included findings of abdomen tender, to the left upper quadrant, moderate intensity, Bowel sounds normal, Liver normal, Spleen normal, Distension present, minimal distention present, no mass, Diallo's sign not present, no inguinal hernia, no femoral hernia, no umbilical hernia. (17:44 SROB) BACK: Back exam normal. (14:59 SROB) UPPER EXTREMITY: Motor strength normal, Sensation intact, Radial pulse normal. (14:59 SROB) LOWER EXTREMITY: Lower extremity exam included findings of inspection normal, Motor strength normal, Posterior tibial pulse normal. (14:59 SROB) NEURO: Neuro exam findings include patient oriented to person, place and time, Speech normal. (14:59 SROB) SKIN: Skin exam included findings of skin warm, dry. (14:59 SROB) PSYCHIATRIC: Psychiatric exam included findings of patient oriented to person place and time, Normal affect, Judgment normal, Insight normal, Anxiety seems to be present. (17:45 SROB) LAB INTERPRETATION (17:45 SROB) INTERPRETATION: I reviewed the lab results, No significant changes from baseline lab values. EVENTS TRANSFER: Triage to Emergency Triage. (Sat May 14, 2016 14:22 EPIE) Emergency Triage to Emergency Room -04. (14:26 EPIE) Removed from Emergency Emergency Room -04. (18:06 EPIE) RADIOLOGYINTERPRETATION (17:41 SROB) CHEST: Chest films negative, no infiltrates, no pneumothorax, no hemothorax, no masses, no cardiomegaly, no congestive heart failure, &a-1R&a+25V*p+0X*c8851W*c202B*c15G*c2P*p-0X&a-25V&a+1R Name: Jonathan Kauffman JR : 1960 M56 MedRec: [id number] AcctNum: [id number] Prepared: Sat May 14, 2016 18:14 by Interface Page 9 of 13 pMD [facility] EMERGENCY RECORD no effusion, no free air. ABDOMEN: KUB films negative, Obstructive series films negative, normal small bowel gas pattern, no air fluid levels, no free air. EKG INTERPRETATION (17:49 SROB) 12 LEAD EKG INTERPRETATION: 12 lead EKG interpreted by Emergency Department Physician at time of study, 12 lead EKG shows normal sinus rhythm, Rate (beats per minute): 66, with no ectopics, Interpretation: normal EKG, Conduction with, no block present, ST segments normal, T waves normal, Poor r wave progression anerior leads. DOCTOR NOTES RE-EVALUATION: The patient's condition has improved, The patient seems very anxious but improves with time and reassurance of normal tests. (17:42 SROB) TEXT: Reviewed VS, nursing notes and PMFSH and agree. (15:00 SROB) PROBLEM LIST No recorded problems DIAGNOSIS (17:47 SROB) FINAL: PRIMARY: acute diverticulitis, ADDITIONAL: Abdominal Pain, ACUTE SINUSITIS UNSPECIFIED, BRONCHITIS NOT SPEC ACUTE/CHRON, CHEST PAIN UNSPECIFIED. DISPOSITION PATIENT: Disposition Type: Discharge, Disposition: *Discharge Home, Disposition Transport: Ambulatory, Condition: Good. (17:47 SROB) Patient left the department. (18:06 EPIE) INSTRUCTION (17:48 SROB) DISCHARGE: DIVERTICULITIS, ABDOMINAL PAIN, UNKOWN CAUSE, (MALE), CHEST PAIN NONCARDIAC, CHEST PAIN GASTRIC REFLUX ADULT, BRONCHITIS, ABX TX (ADULT), SINUSITIS, ABX TX. FOLLOWUP: Gabino BLUE, Sumeet HOPKINS, [facility] [place] [facility] [place] [address], [phone], Follow up with Primary Care Physician in 2-3 days. PRESCRIPTION Cipro tablet: TABLET : 750 mg : ORAL : Quantity: 1 Unit: tab(s) Route: ORAL Schedule: 2 times a day Dispense: 20 Unit: tab(s) May substitute. Refills: No Refills POTENTIAL ALLERGY REACTION: 'Avelox [moxifloxacin/moxifloxacin HCl]' Override Rationale: already opn Cipro without problems. (16:23 SROB) NOTES: No Refills. (16:23 SROB) metroNIDAZOLE oral: TABLET : 500 mg : ORAL : Quantity: 1 &a-1R&a+25V*p+0X*o3301Z*c202B*c15G*c2P*p-0X&a-25V&a+1R Name: Daly Jonathan Isaias CHACON : 1960 M56 MedRec: [id number] AcctNum: [id number] Prepared: Sky May 14, 2016 18:14 by Interface Page 10 of 13 pMD [facility] EMERGENCY RECORD Unit: tab(s) Route: ORAL Schedule: 3 times a day Dispense: 30 Unit: tab(s) May substitute. Refills: No Refills . (16:23 SROB) NOTES: No Refills. (16:23 SROB) acetaminophen-codeine: TABLET : 325 mg-30 mg : ORAL : Quantity: 1-2 Unit: tab(s) Route: ORAL Schedule: every 6 hours PRN Dispense: 20 Unit: tab(s) May substitute. Refills: No Refills . (16:24 SROB) NOTES: No Refills. (16:24 SROB) Zofran ODT: TABLET,DISINTEGRATING : 4 mg : ORAL : Quantity: 1 Unit: tab(s) Route: ORAL Schedule: every 8 hours PRN Dispense: 20 Unit: tab(s) May substitute. Refills: No Refills . (16:25 SROB) NOTES: No Refills. (16:25 SROB) IMAGING RX: Image captured from scanner. (17:55 EPIE) *DISCHARGE INSTRUCTIONS RECEIPT: Image captured from scanner. (18:05 EPIE) Page 2 added. Image captured from scanner. (18:05 EPIE) *SUPPLY CHARGE SHEET: Image captured from scanner. (18:06 EPIE) ADMIN (17:55 SROB) DIGITAL SIGNATURE: MD Michael, Harvinder. RESULTS LABORATORY: Urinalysis w/ Rflx Microscopic Collection DT: Sat May 14, 2016 15:16, Color Yellow , Range (Yellow), Clarity Clear , Range (Clear), Specific [place], Urine 1.010 , Range (1.005-1.030), pH, Urine 7.5 , Range (5.0-9.0), Leukocyte Negative , Range (Negative), Nitrite Negative , Range (Negative), Protein, Urine (Dipstick) Negative mg/dL, Range (Neg-Trace), Glucose, Urine (Dipstick) Negative mg/dL, Range (Negative), Ketone, Urine Negative mg/dL, Range (Negative), Urobilinogen 0.2 mg/dL, Range (0.2-1.0), Bilirubin Negative , Range (Negative), *Blood, Urine Trace - H , Range (Negative). (15:26 SROB) CBC with Differential Collection DT: Sat May 14, 2016 14:59, White Blood Cell (WBC) Count 9.9 thou/uL, Range (4.8-10.8), Red Blood Cell (RBC) Count 5.38 mill/uL, Range (4.70-6.10), Hemoglobin 15.2 g/dL, Range (14.0-18.0), Hematocrit 45.4 %, Range (42.0-52.0), Mean Corpuscular Volume 84.5 fl, Range (80.0-94.0), Mean Corpuscular Hemoglobin 28.3 pg, Range (27.0-31.0), Mean Corpuscular HGB CONC 33.5 g/dL, Range (32.0-36.0), RBC Distribution Width 12.5 %, Range (11.5-14.5), Platelet Count 268 thou/uL, Range (130-400), &a-1R&a+25V*p+0X*q8613X*c202B*c15G*c2P*p-0X&a-25V&a+1R Name: Jonathan Kauffman JR : 1960 M56 MedRec: [id number] AcctNum: [id number] Prepared: Sat May 14, 2016 18:14 by Interface Page 11 of 13 pMD [facility] EMERGENCY RECORD Mean Platelet Volume 7.7 fL, Range (7.4-10.4), Neutrophil 72 %, Range (42-75), *Band 3 - L %, Range (5-11), *Lymphocytes 17 - L %, Range (21-51), Monocytes 6 %, Range (0-10), Eosinophils 1 %, Range (0-10), Basophils 1 %, Range (0-2), PLT Morphology Comment Appears Adequate , RBC Morphology Normal . (15:26 SROB) Comprehensive Metabolic Panel Collection DT: Sat May 14, 2016 14:59, Sodium 136 mmol/L, Range (136-145), Potassium 4.4 mmol/L, Range (3.5-5.1), *Chloride 109 - H mmol/L, Range (98-107), *Carbon Dioxide 18 - L mmol/L, Range (22-29), Anion Gap 13 mmol/L, Range (10-20), BUN (Urea Nitrogen) 10 mg/dL, Range (8.4-25.7), Creatinine 0.99 mg/dL, Range (0.7-1.3), Estimated GFR-MDRD 78 , Reference Range for Estimated GFR: Greater than 90, mL/min/1.73 m2 NOTE: The MDRD equation has not been validated for use, with the elderly (over 70 years of age), women, patients with, serious comorbid condition or persons with extremes of body size, muscle, mass, or nutritional status. , *Glucose 116 - H mg/dL, Range (70-105), Calcium 9.1 mg/dL, Range (7.8-10.44), Bilirubin, Total 0.4 mg/dL, Range (0.2-1.2), Protein, Total 6.8 g/dL, Range (6.0-8.3), NOTE: Plasma values are generally 0.3 to 0.5 g/dL higher than serum values, due to the presence of fibrinogen. , Albumin 3.7 g/dL, Range (3.5-5.0), Globulin 3.1 g/dL, Range (2.4-3.5), Alb/Glob Ratio 1.2 g/dL, Range (1.2-2.2), Alkaline Phosphatase 64 U/L, Range (40-150), AST (SGOT) 16 U/L, Range (5-34), ALT (SGPT) 28 U/L, Range (0-55). (15:26 SROB) Urine Microscopic Collection DT: [facility] May 14, 2016 15:16, RBC/HPF 0-3 HPF, Range (0-3), WBC/HPF None Seen HPF, Range (0-3), Squamous Epithelial None Seen HPF, Range (0-3), Bacteria/HPF Rare-Few HPF, Range (None Seen). (16:15 SROB) Urinalysis w/ Rflx Microscopic Collection DT: Sat May 14, 2016 15:16, Color Yellow , Range (Yellow), Clarity Clear , Range (Clear), Specific [place], Urine 1.010 , Range (1.005-1.030), pH, Urine 7.5 , Range (5.0-9.0), Leukocyte Negative , Range (Negative), Nitrite Negative , Range (Negative), Protein, Urine (Dipstick) Negative mg/dL, Range (Neg-Trace), &a-1R&a+25V*p+0X*i8384Y*c202B*c15G*c2P*p-0X&a-25V&a+1R Name: DalyJonathan JR : 1960 M56 MedRec: [id number] AcctNum: [id number] Prepared: Sat May 14, 2016 18:14 by Interface Page 12 of 13 pMD [facility] EMERGENCY RECORD Glucose, Urine (Dipstick) Negative mg/dL, Range (Negative), Ketone, Urine Negative mg/dL, Range (Negative), Urobilinogen 0.2 mg/dL, Range (0.2-1.0), Bilirubin Negative , Range (Negative), *Blood, Urine Trace - H , Range (Negative). (16:15 SROB) Cardiac Profile w/CKMB & TropI Collection DT: Sat May 14, 2016 14:59, CKMB 0.4 ng/mL, Range (0-6.6), Troponin I Less than 0.010 ng/mL, Range (< 0.028), Reference Range , 0.00 - 0.028 ng/mL Negative 0.029 - 0.29 ng/mL , Indeterminate Greater or Equal to 0.3 ng/mL Strongly suggests [place] , . (16:15 SROB) Hackett: BDON=ANDRES Martínez, Ria EPIE=ANDRES Ronquillo, Yessica SROB=MD Michael, Harvinder &a-1R&a+25V*p+0X*n2135C*c202B*c15G*c2P*p-0X&a-25V&a+1R Name: Jonathan Kauffman JR : 1960 M56 MedRec: [id number] AcctNum: [id number] Prepared: [facility] May 14, 2016 18:14 by Interface Page 13 of 13 pMD MTDD
--- NOTE | 2016-05-14 19:04 | RAD ---
TWO VIEWS OF THE ABDOMEN 05/14/16 INDICATION: Abdominal pain; history of recent hospitalization for diverticulitis. COMPARISON: Prior CT of the abdomen and pelvis dated 04/22/16. FINDINGS: The bowel gas pattern is not obstructed. No suspicious calcification is evident. No acute osseous ab normality is demonstrated. There is a left total hip prosthesis in place. There is moderate degenera tive changes of the right hip. IMPRESSION: No acute abnormality. POS: [facility]
== END 2016-05-14 18:02 | disposition home or self-care (01) ==
LOC: NAV ERS 14:18
DX: K57.92 Diverticulitis of intestine, part unspecified, without perforation or abscess without bleeding (principal); J01.90 Acute sinusitis, unspecified; J40 Bronchitis, not specified as acute or chronic; E78.5 Hyperlipidemia, unspecified; M19.90 Unspecified osteoarthritis, unspecified site; E27.40 Unspecified adrenocortical insufficiency; I11.0 Hypertensive heart disease with heart failure; I50.9 Heart failure, unspecified; I25.10 Atherosclerotic heart disease of native coronary artery without angina pectoris; I25.2 Old myocardial infarction; Z79.82 Long term (current) use of aspirin; Z79.899 Other long term (current) drug therapy
CPT/HCPCS: 71020; 74020; 80053; 81003; 81015; 82553; 84484; 85025; 93005; 96365; Q0162

== ENCOUNTER 2016-06-15 12:34 | Emergency (ER) | payer OTHER ==
[2016-06-15] MEDS ORDERED: Ondansetron HCl/PF 4 MG/2 ML Vial ONE ×2 (13:18)
[2016-06-15] MEDS ORDERED: Morphine Sulfate 2 MG/ML SYRINGE ONE (13:18)
[2016-06-15 13:56] LABS: #Basophils 0.1 thou/uL (0.0-0.2); #Eosinphils 0.1 thou/uL (0.0-0.7); #Monocytes 0.4 thou/uL (0.11-0.59); #Neutrophils 8.2 thou/uL (1.40-6.50); %Eosinophils 0.8 % (0.0-10.0); %Lymphocytes 10.5 % (21.0-51.0); %Monocytes 3.7 % (0.0-10.0); Hematocrit 40.6 % (42.0-52.0); Mean Platelet Volume 7.8 fL (7.4-10.4); Red Blood Cell (RBC) Count 4.86 mill/uL (4.70-6.10); White Blood Cell (WBC) Count 9.8 thou/uL (4.8-10.8)
[2016-06-15 14:10] LABS: ALT (SGPT) 17 U/L (0-55); AST (SGOT) 15 U/L (5-34); Alkaline Phosphatase 69 U/L (40-150); Amylase 22 U/L (25-125); Anion Gap 15 mmol/L (10-20); BUN (Urea Nitrogen) 9 mg/dL (8.4-25.7); Bilirubin, Total 0.4 mg/dL (0.2-1.2); CK (CPK) 47 U/L (30-200); Calc. Creatinine Clearance 0 mL/min (70-130); Calcium 9.1 mg/dL (7.8-10.44); Carbon Dioxide 22 mmol/L (22-29); Chloride 107 mmol/L (98-107); Estimated GFR-MDRD 76; Globulin 2.8 g/dL (2.4-3.5); Lipase 11 U/L (8-78); Protein, Total 6.5 g/dL (6.0-8.3); Troponin I Less than 0.010 ng/mL (< 0.028)
[2016-06-15 14:17] LABS: Bilirubin Negative (Negative); Blood, Urine Negative (Negative); Glucose, Urine (Dipstick) Negative (Negative); Ketone, Urine Negative (Negative); Nitrite Negative (Negative); Protein, Urine (Dipstick) Negative (Neg-Trace); Urobilinogen 0.2 mg/dL (0.2-1.0)
== END 2016-06-15 14:41 | disposition home or self-care (01) ==
LOC: NAV ERS 12:34
DX: R10.12 Left upper quadrant pain (principal); R10.13 Epigastric pain; E78.5 Hyperlipidemia, unspecified; I11.0 Hypertensive heart disease with heart failure; I50.9 Heart failure, unspecified; I25.2 Old myocardial infarction; F17.210 Nicotine dependence, cigarettes, uncomplicated; Z79.82 Long term (current) use of aspirin; Z79.899 Other long term (current) drug therapy
CPT/HCPCS: 80053; 81003; 82150; 82553; 83690; 84484; 85025; 96374; 96375; J2270; J2405

== ENCOUNTER 2016-08-13 13:54 | Emergency (ER) | payer OTHER ==
[2016-08-13 14:51] LABS: #Basophils 0.1 thou/uL (0.0-0.2); #Eosinphils 0.1 thou/uL (0.0-0.7); #Lymphocytes 1.2 thou/uL (1.20-3.40); #Monocytes 0.5 thou/uL (0.11-0.59); #Neutrophils 9.2 thou/uL (1.40-6.50); %Basophils 0.7 % (0.0-1.0); %Eosinophils 0.5 % (0.0-10.0); %Monocytes 4.1 % (0.0-10.0); %Neutrophils 83.7 % (42.0-75.0); Hemoglobin 13.7 g/dL (14.0-18.0); Mean Corpuscular HGB CONC 32.4 g/dL (32.0-36.0); Mean Corpuscular Hemoglobin 26.2 pg (27.0-31.0); Mean Corpuscular Volume 81.1 fl (80.0-94.0); Mean Platelet Volume 8.6 fL (7.4-10.4); Platelet Count 240 thou/uL (130-400); RBC Distribution Width 13.1 % (11.5-14.5); Red Blood Cell (RBC) Count 5.24 mill/uL (4.70-6.10)
[2016-08-13 15:07] LABS: ALT (SGPT) 17 U/L (0-55); AST (SGOT) 14 U/L (5-34); Albumin 3.8 g/dL (3.5-5.0); Alkaline Phosphatase 80 U/L (40-150); Anion Gap 14 mmol/L (10-20); BUN (Urea Nitrogen) 13 mg/dL (8.4-25.7); Bilirubin, Total 0.3 mg/dL (0.2-1.2); Calc. Creatinine Clearance 0 mL/min (70-130); Calcium 9.5 mg/dL (7.8-10.44); Carbon Dioxide 21 mmol/L (22-29); Chloride 107 mmol/L (98-107); Estimated GFR-MDRD 72; Globulin 3.3 g/dL (2.4-3.5); Glucose 105 mg/dL (70-105); Potassium 4.3 mmol/L (3.5-5.1); Protein, Total 7.1 g/dL (6.0-8.3); Sodium 138 mmol/L (136-145)
[2016-08-13 15:08] LABS: CKMB 0.5 ng/mL (0-6.6); Troponin I Less than 0.010 ng/mL (< 0.028)
--- NOTE | 2016-08-13 15:41 | RAD ---
PORTABLE CHEST 08/13/16 PROVIDED CLINICAL HISTORY: Dyspnea. FINDINGS: Comparison 06/16/16. The cardiac and mediastinal silhouette is unchanged in appearance. Median sternotomy changes are aga in seen. No focal consolidation, pleural fluid or pneumothorax apparent. IMPRESSION: No evidence for an acute cardiopulmonary process. POS: [facility]
== END 2016-08-13 15:18 | disposition home or self-care (01) ==
LOC: NAV ERS 13:54
DX: J32.9 Chronic sinusitis, unspecified (principal); E78.5 Hyperlipidemia, unspecified; I50.9 Heart failure, unspecified; I11.0 Hypertensive heart disease with heart failure; I25.10 Atherosclerotic heart disease of native coronary artery without angina pectoris; I25.2 Old myocardial infarction; J44.9 Chronic obstructive pulmonary disease, unspecified; F17.210 Nicotine dependence, cigarettes, uncomplicated; Z79.899 Other long term (current) drug therapy
CPT/HCPCS: 71010; 80053; 82553; 84484; 85025; 93005

== ENCOUNTER 2016-08-20 12:29 | Emergency (ER) | payer OTHER ==
[2016-08-20] MEDS ORDERED: Sodium Chloride 0.9% 1,000 ML ONE (12:48)
[2016-08-20] MEDS ORDERED: Ondansetron HCl/PF 4 MG/2 ML Vial ONE (12:48)
[2016-08-20 12:55] LABS: #Basophils 0.1 thou/uL (0.0-0.2); #Eosinphils 0.1 thou/uL (0.0-0.7); #Monocytes 0.5 thou/uL (0.11-0.59); #Neutrophils 9.4 thou/uL (1.40-6.50); %Basophils 0.8 % (0.0-1.0); %Eosinophils 1.2 % (0.0-10.0); %Lymphocytes 16.5 % (21.0-51.0); %Monocytes 3.8 % (0.0-10.0); %Neutrophils 77.8 % (42.0-75.0); Hemoglobin 14.1 g/dL (14.0-18.0); Mean Corpuscular HGB CONC 31.6 g/dL (32.0-36.0); Mean Corpuscular Hemoglobin 25.8 pg (27.0-31.0); Mean Corpuscular Volume 81.9 fl (80.0-94.0); Mean Platelet Volume 8.3 fL (7.4-10.4); Platelet Count 247 thou/uL (130-400); RBC Distribution Width 13.4 % (11.5-14.5); Red Blood Cell (RBC) Count 5.45 mill/uL (4.70-6.10); White Blood Cell (WBC) Count 12.1 thou/uL (4.8-10.8)
[2016-08-20 13:15] LABS: ALT (SGPT) 10 U/L (8-55); AST (SGOT) 10 U/L (5-34); Albumin 3.9 g/dL (3.5-5.0); Alkaline Phosphatase 71 U/L (40-150); Amylase 38 U/L (25-125); Anion Gap 19 mmol/L (10-20); BUN (Urea Nitrogen) 12 mg/dL (8.4-25.7); Bilirubin, Total 0.3 mg/dL (0.2-1.2); CK (CPK) 24 U/L (30-200); Calc. Creatinine Clearance 0 mL/min (70-130); Calcium 10.1 mg/dL (7.8-10.44); Carbon Dioxide 20 mmol/L (22-29); Chloride 105 mmol/L (98-107); Estimated GFR-MDRD 47; Globulin 3.2 g/dL (2.4-3.5); Glucose 123 mg/dL (70-105); Lipase 27 U/L (8-78); Protein, Total 7.1 g/dL (6.0-8.3); Sodium 140 mmol/L (136-145)
[2016-08-20 13:16] LABS: CKMB 0.5 ng/mL (0-6.6); Troponin I Less than 0.010 ng/mL (< 0.028)
[2016-08-20 13:38] LABS: Bilirubin Negative (Negative); Blood, Urine Negative (Negative); Clarity Clear (Clear); Glucose, Urine (Dipstick) Negative (Negative); Leukocyte Negative (Negative); Nitrite Negative (Negative); Protein, Urine (Dipstick) 30 mg/dL (Neg-Trace); Specific Gravity, Urine 1.015 (1.005-1.030); Urobilinogen 0.2 mg/dL (0.2-1.0)
[2016-08-20] MEDS ORDERED: Orphenadrine Citrate 60 MG/2 ML VIAL ONE (13:41)
[2016-08-20 13:44] LABS: Bacteria/HPF None Seen HPF (None Seen); RBC/HPF None Seen HPF (0-3); Squamous Epithelial 0-3 HPF (0-3); WBC/HPF None Seen HPF (0-3)
[2016-08-20] MEDS ORDERED: Fentanyl 100 MCG/2 ML VIAL ONE (14:05)
[2016-08-20 14:24] LABS: Amphetamine Not Detected (NotDetected); Barbiturates Screen Not Detected (NotDetected); Benzodiazepine Screen Not Detected (NotDetected); Cocaine Metabolite Screen Not Detected (NotDetected); Medtox Control Line Valid? VALID (VALID); Methadone Not Detected (NotDetected); Methamphetamine Not Detected (NotDetected); Opiate Screen Detected (NotDetected); Oxycodone Screen Not Detected (NotDetected); Phencyclidine (PCP) Not Detected (NotDetected); THC/Cannabinoid Screen Not Detected (NotDetected); Tricyclic Screen Not Detected (NotDetected)
[2016-08-20] MEDS ORDERED: Mag-Al Plus 1200 MG/1200 MG/120 MG/30 ML UDCUP ONE (15:23)
--- NOTE | 2016-08-20 15:38 | CT ---
CT ABDOMEN NONCONTRAST CT PELVIS NONCONTRAST: (urolithiasis protocol) DATE: 08/20/16 HISTORY: 56-year-old male with a new type of left groin pain radiating to left flank. COMPARISON: Contrast enhanced CT of 08/17/16. TECHNIQUE: IV injection of iodinated contrast media: none Oral contrast media: none FINDINGS: Other than for urolithiasis, the lack of IV and oral contrast limits the evaluation. Again noted are the multifocal, multiple abdominal aortic aneurysms, treated with stent graft. Left renal artery stent. Previously mentioned small hypodense lesion in left renal parenchyma. No renal, ureteral, or bladder calculi. No hydroureteronephrosis. No signs of acute colonic diverticulitis. Mu ltiple diverticula throughout descending colon and some in the proximal sigmoid colon. No small stefano l dilation. Noninflamed appendix. No free fluid or free air within abdominal cavity or pelvic cavity . Left total hip replacement osteoplasty hardware. Inferior rami of pelvis were excluded from today' s CT images. A few tiny calcifications near the nisreen of the bilateral kidneys are tiny atherosclerot ic calcifications and should not be mistaken for renal calculi. Within the limitations of noncontras t scan, no gross pathology identified involving the liver, adrenals, pancreas, or spleen. No pleural effusion. No pneumoperitoneum or ascites. Other than the fact that the current study is noncontrast while the previous study is contrast enhanced, no significant interval change is detected. IMPRESSION: 1. No acute findings. 2. No urolithiasis or obstructive uropathy. 3. Multiple abdominal aortic aneurysms treated with stent graft. 4. Left renal artery stent. 5. Descending colonic diverticulosis without acute diverticulitis. 6. Small left renal lesion. GITA Hardin POS: [facility]
== END 2016-08-20 15:28 | disposition home or self-care (01) ==
LOC: NAV ERS 12:29
DX: R10.32 Left lower quadrant pain (principal); E78.5 Hyperlipidemia, unspecified; K57.92 Diverticulitis of intestine, part unspecified, without perforation or abscess without bleeding; E27.40 Unspecified adrenocortical insufficiency; I11.0 Hypertensive heart disease with heart failure; I50.9 Heart failure, unspecified; I25.10 Atherosclerotic heart disease of native coronary artery without angina pectoris; I25.2 Old myocardial infarction; Z95.1 Presence of aortocoronary bypass graft; Z79.899 Other long term (current) drug therapy
CPT/HCPCS: 36415; 74176; 80053; 80306; 81003; 81015; 82150; 82550; 82553; 83690; 84484; 85025; 93005; 96361; 96374; 96375; J2270; J2360; J2405; J3010; J7050

== ENCOUNTER 2016-10-10 06:07 | Emergency (ER) | payer OTHER ==
[2016-10-10] MEDS ORDERED: Lidocaine 1% 20 ML MDV ONE (06:38)
[2016-10-10] MEDS ORDERED: HYDROcodone/Acetaminophen 5/325 mg Tablet ONE (06:42)
== END 2016-10-10 07:33 | disposition home or self-care (01) ==
LOC: NAV ERS 06:07
DX: K64.5 Perianal venous thrombosis (principal); I13.2 Hypertensive heart and chronic kidney disease with heart failure and with stage 5 chronic kidney disease, or end stage renal disease; N18.6 End stage renal disease; I50.9 Heart failure, unspecified; I25.2 Old myocardial infarction; F17.210 Nicotine dependence, cigarettes, uncomplicated; Z79.899 Other long term (current) drug therapy
CPT/HCPCS: 46083; J2001

== ENCOUNTER 2017-08-07 12:34 | Emergency (ER) | payer OTHER ==
[2017-08-07] MEDS ORDERED: methylPREDNISolone Acetate 40 mg/ml Vial ONE (13:16)
[2017-08-07] MEDS ORDERED: cefTRIAXone\\ROCEPHIN 1 GM VIAL ONE (13:16)
[2017-08-07] MEDS ORDERED: Lidocaine 1% 20 ML MDV ONE (13:16)
== END 2017-08-07 13:52 | disposition home or self-care (01) ==
LOC: NAV ERS 12:34
DX: J01.90 Acute sinusitis, unspecified (principal); M32.15 Tubulo-interstitial nephropathy in systemic lupus erythematosus; M19.90 Unspecified osteoarthritis, unspecified site; I13.2 Hypertensive heart and chronic kidney disease with heart failure and with stage 5 chronic kidney disease, or end stage renal disease; N18.6 End stage renal disease; E78.5 Hyperlipidemia, unspecified; I71.4 Abdominal aortic aneurysm, without rupture; I25.2 Old myocardial infarction; I25.10 Atherosclerotic heart disease of native coronary artery without angina pectoris; F17.210 Nicotine dependence, cigarettes, uncomplicated; F41.9 Anxiety disorder, unspecified; Z79.899 Other long term (current) drug therapy
CPT/HCPCS: 93005; 94760; 96372; J0696; J1030; J2001

== ENCOUNTER 2018-02-10 10:36 | Emergency (ER) | payer OTHER ==
[2018-02-10] MEDS ORDERED: Lidocaine 1% (PF) 30 ML VIAL ONE (11:55)
[2018-02-10] MEDS ORDERED: cefTRIAXone\\ROCEPHIN 1 GM VIAL ONE (11:55)
[2018-02-10] MEDS ORDERED: methylPREDNISolone Acetate 40 mg/ml Vial ONE (11:55)
--- NOTE | 2018-02-10 12:46 | RAD ---
2 VIEWS CHEST: Date: 02/10/18 PROVIDED CLINICAL HISTORY: Productive cough. FINDINGS: Comparison is made with the study dated 05/14/16. Cardiac silhouette remains enlarged. Median sternotomy changes are again seen. No focal consolidation , pleural fluid, or pneumothorax apparent. Degenerative changes are seen involving the thoracic spine . IMPRESSION: Cardiomegaly without evidence for an acute cardiopulmonary process. POS: [facility]
== END 2018-02-10 12:30 | disposition home or self-care (01) ==
LOC: NAV ERS 10:36
DX: J30.9 Allergic rhinitis, unspecified (principal); J01.90 Acute sinusitis, unspecified; E78.5 Hyperlipidemia, unspecified; M19.90 Unspecified osteoarthritis, unspecified site; I13.2 Hypertensive heart and chronic kidney disease with heart failure and with stage 5 chronic kidney disease, or end stage renal disease; I50.9 Heart failure, unspecified; N18.6 End stage renal disease; I25.10 Atherosclerotic heart disease of native coronary artery without angina pectoris; I25.2 Old myocardial infarction; F41.9 Anxiety disorder, unspecified; F17.210 Nicotine dependence, cigarettes, uncomplicated; Z79.899 Other long term (current) drug therapy
CPT/HCPCS: 71046; 96372; J0696; J1030; J2001

== ENCOUNTER 2018-04-22 12:38 | Emergency (ER) | payer OTHER ==
[2018-04-22] MEDS ORDERED: Hydrocortisone Sod Succ/PF 100 mg/2 ml Vial ONE (13:22)
[2018-04-22 14:03] LABS: #Basophils 0.1 thou/uL (0.0-0.2); #Lymphocytes 0.4 thou/uL (1.20-3.40); #Monocytes 0.3 thou/uL (0.11-0.59); #Neutrophils 7.3 thou/uL (1.40-6.50); %Basophils 0.8 % (0.0-1.0); %Lymphocytes 5.4 % (21.0-51.0); %Monocytes 3.4 % (0.0-10.0); %Neutrophils 90.3 % (42.0-75.0); Hemoglobin 13.3 g/dL (14.0-18.0); Mean Corpuscular HGB CONC 32.3 g/dL (32.0-36.0); Mean Corpuscular Hemoglobin 26.7 pg (27.0-31.0); Mean Corpuscular Volume 82.7 fL (78.0-98.0); Mean Platelet Volume 6.8 fL (7.4-10.4); Platelet Count 248 thou/uL (130-400); RBC Distribution Width 15.2 % (11.5-14.5); Red Blood Cell (RBC) Count 4.96 mill/uL (4.70-6.10)
[2018-04-22] MEDS ORDERED: Albuterol Sulfate 2.5 mg/3 ml Neb ONE (14:10)
[2018-04-22 14:23] LABS: ALT (SGPT) 29 U/L (8-55); AST (SGOT) 30 U/L (5-34); Albumin 3.7 g/dL (3.5-5.0); Alkaline Phosphatase 58 U/L (40-150); Anion Gap 15 mmol/L (10-20); BUN (Urea Nitrogen) 17 mg/dL (8.4-25.7); Bilirubin, Total 0.3 mg/dL (0.2-1.2); Calc. Creatinine Clearance 0 mL/min (70-130); Calcium 9.5 mg/dL (7.8-10.44); Carbon Dioxide 21 mmol/L (22-29); Chloride 99 mmol/L (98-107); Estimated GFR-MDRD 57; Glucose 124 mg/dL (70-105); Potassium 4.8 mmol/L (3.5-5.1); Protein, Total 6.7 g/dL (6.0-8.3); Sodium 130 mmol/L (136-145)
--- NOTE | 2018-04-22 14:36 | RAD ---
CHEST 1 VIEW: Date: 04/22/18 HISTORY: Chest pain. COMPARISON: Chest radiograph dated 02/10/18. FINDINGS: Lungs are clear. No pneumothorax or effusion. Cardiac silhouette and mediastinal contours are within normal limits. IMPRESSION: No acute intrathoracic abnormality. POS: [facility]
== END 2018-04-22 14:58 | disposition left against medical advice (07) ==
LOC: NAV ERS 12:38
DX: J20.9 Acute bronchitis, unspecified (principal); E87.1 Hypo-osmolality and hyponatremia; E27.40 Unspecified adrenocortical insufficiency; I13.2 Hypertensive heart and chronic kidney disease with heart failure and with stage 5 chronic kidney disease, or end stage renal disease; I50.9 Heart failure, unspecified; N18.6 End stage renal disease; M19.90 Unspecified osteoarthritis, unspecified site; I71.4 Abdominal aortic aneurysm, without rupture; I25.10 Atherosclerotic heart disease of native coronary artery without angina pectoris; F17.210 Nicotine dependence, cigarettes, uncomplicated; Z79.899 Other long term (current) drug therapy
CPT/HCPCS: 71046; 80053; 83880; 84484; 85025; 93005; 94760; 96372; J1720; J7611; J7620

== ENCOUNTER 2018-05-04 11:09 | Emergency (ER) | payer OTHER ==
[2018-05-04] MEDS ORDERED: Ondansetron PF 4 MG/2 ML Vial ONE (11:49)
[2018-05-04 12:15] LABS: ALT (SGPT) 20 U/L (8-55); AST (SGOT) 15 U/L (5-34); Albumin 3.6 g/dL (3.5-5.0); Alkaline Phosphatase 65 U/L (40-150); Anion Gap 16 mmol/L (10-20); BUN (Urea Nitrogen) 28 mg/dL (8.4-25.7); Bilirubin, Total 0.5 mg/dL (0.2-1.2); Calc. Creatinine Clearance 0 mL/min (70-130); Calcium 9.6 mg/dL (7.8-10.44); Carbon Dioxide 20 mmol/L (22-29); Chloride 80 mmol/L (98-107); Estimated GFR-MDRD 46; Globulin 3.1 g/dL (2.4-3.5); Glucose 89 mg/dL (70-105); Potassium 5.1 mmol/L (3.5-5.1); Protein, Total 6.7 g/dL (6.0-8.3)
[2018-05-04 12:16] LABS: Band 2 % (5-11); Hemoglobin 12.5 g/dL (14.0-18.0); Lymphocytes 12 % (21-51); MDiff Complete? YES; Mean Corpuscular HGB CONC 33.9 g/dL (32.0-36.0); Mean Corpuscular Hemoglobin 27.1 pg (27.0-31.0); Mean Corpuscular Volume 79.9 fL (78.0-98.0); Mean Platelet Volume 6.7 fL (7.4-10.4); Monocytes 5 % (0-10); Neutrophil 81 % (42-75); Platelet Count 368 thou/uL (130-400); Platelet Morphology Comment Appears Adequate; RBC Distribution Width 13.8 % (11.5-14.5); Red Blood Cell (RBC) Count 4.63 mill/uL (4.70-6.10); White Blood Cell (WBC) Count 16.7 thou/uL (4.8-10.8)
[2018-05-04 12:21] LABS: Sodium 111 mmol/L (136-145)
[2018-05-04] MEDS ORDERED: Sodium Chloride 0.9% 250 ML 250 ML ONE (13:13)
--- NOTE | 2018-05-04 13:42 | CT ---
CT THORAX NONCONTRAST: HISTORY: 58-year-old male with dyspnea and abnormal breath sounds. COMPARISON: CT pulmonary angiogram of 04/12/18. FINDINGS: Previously, there were diffuse bilateral predominantly interstitial densities in both lungs, with con fluence into alveolar densities in the bilateral upper lobes. On the current CT, there are also bilat eral upper lobe heterogeneously distributed interstitial/mild alveolar faint patchy pulmonary densiti es. Some of these also involve the superior segments of the bilateral lower lobes. They are milder th an they were on the previous study. Trachea and bilateral mainstem bronchi are patent and clear. No p leural effusion or pneumothorax. Sternotomy wires. Ectasia and tortuosity, with mild atherosclerotic calcification, of thoracic aorta, without aneurysm. No mediastinal lymphadenopathy. No cardiomegaly o r pericardial effusion. The current CT reaches almost to the level of the iliac crests, whereas the p revious one did not. The lower images demonstrate an infrarenal abdominal aortic aneurysm containing a stent graft. There may be a possible saccular component of the aneurysm on the right side in additi on to the fusiform aneurysm. There are metallic stents in the left renal artery and in the celiac axi s. Left kidney is very atrophic. No hydronephrosis of the right kidney. IMPRESSION: 1. Diffuse bilateral interstitial/alveolar infiltrates, milder than on the previous study of 8. This could represent either pulmonary edema or Multifocal bilateral pneumonia. 2. Infrarenal abdominal aortic aneurysm treated with endograft. 3. Very atrophic left kidney. GITA Hardin POS: [facility]
[2018-05-04 21:34] LABS: Potassium, Urine 41.5 mmol/L
== END 2018-05-04 13:46 | disposition short-term general hospital (02) ==
LOC: NAV ERS 11:09
DX: E87.1 Hypo-osmolality and hyponatremia (principal); I13.2 Hypertensive heart and chronic kidney disease with heart failure and with stage 5 chronic kidney disease, or end stage renal disease; I50.9 Heart failure, unspecified; N18.6 End stage renal disease; I25.10 Atherosclerotic heart disease of native coronary artery without angina pectoris; M19.90 Unspecified osteoarthritis, unspecified site; I25.2 Old myocardial infarction; I71.4 Abdominal aortic aneurysm, without rupture; Z87.891 Personal history of nicotine dependence; Z79.899 Other long term (current) drug therapy
CPT/HCPCS: 71250; 80053; 82436; 83880; 83930; 84133; 84300; 84484; 85025; 93005; 94640; 94760; 96374; J2405; J7050; J7620

== ENCOUNTER 2018-05-17 14:39 | Outpatient (CLI) | payer OTHER ==
[2018-05-17 15:20] LABS: Anion Gap 14 mmol/L (10-20); BUN (Urea Nitrogen) 23 mg/dL (8.4-25.7); Calc. Creatinine Clearance 0 mL/min (70-130); Calcium 9.4 mg/dL (7.8-10.44); Carbon Dioxide 26 mmol/L (22-29); Chloride 97 mmol/L (98-107); Estimated GFR-MDRD 56; Glucose 154 mg/dL (70-105); Potassium 3.6 mmol/L (3.5-5.1); Sodium 133 mmol/L (136-145)
== END 2018-05-17 14:40 | disposition home or self-care (01) ==
LOC: NAV LAB 14:39
PROVIDERS: ATTEND Internal Medicine Nephrology
DX: N18.1 Chronic kidney disease, stage 1 (principal)
CPT/HCPCS: 36415; 80048

== ENCOUNTER 2018-09-02 09:13 | Emergency (ER) | payer OTHER ==
[2018-09-02] MEDS ORDERED: Meclizine HCl 25 MG TAB ONE (10:02)
[2018-09-02] MEDS ORDERED: Ondansetron ODT 4 MG TAB ONE (10:02)
[2018-09-02] MEDS ORDERED: methylPREDNISolone Sod Succ/PF 125 MG/2 ML VIAL ONE (10:03)
== END 2018-09-02 10:41 | disposition home or self-care (01) ==
LOC: NAV ERS 09:13
DX: H65.93 Unspecified nonsuppurative otitis media, bilateral (principal); H83.03 Labyrinthitis, bilateral; M19.90 Unspecified osteoarthritis, unspecified site; E78.5 Hyperlipidemia, unspecified; I71.4 Abdominal aortic aneurysm, without rupture; I13.2 Hypertensive heart and chronic kidney disease with heart failure and with stage 5 chronic kidney disease, or end stage renal disease; I50.9 Heart failure, unspecified; N18.6 End stage renal disease; I25.10 Atherosclerotic heart disease of native coronary artery without angina pectoris; I25.2 Old myocardial infarction; F17.210 Nicotine dependence, cigarettes, uncomplicated; Z71.6 Tobacco abuse counseling; Z79.899 Other long term (current) drug therapy
CPT/HCPCS: 96372; 99406; J2930; J8499; Q0162

== ENCOUNTER 2018-10-10 08:05 | Emergency (ER) | payer OTHER ==
[2018-10-10 09:01] LABS: ALT (SGPT) 14 U/L (8-55); AST (SGOT) 20 U/L (5-34); Albumin 3.8 g/dL (3.5-5.0); Alkaline Phosphatase 92 U/L (40-150); Anion Gap 18 mmol/L (10-20); BUN (Urea Nitrogen) 19 mg/dL (8.4-25.7); Bilirubin, Total 0.5 mg/dL (0.2-1.2); Calc. Creatinine Clearance 0 mL/min (70-130); Calcium 9.9 mg/dL (7.8-10.44); Carbon Dioxide 26 mmol/L (22-29); Chloride 81 mmol/L (98-107); Estimated GFR-MDRD 43; Glucose 116 mg/dL (70-105); Protein, Total 6.8 g/dL (6.0-8.3); Sodium 123 mmol/L (136-145)
[2018-10-10] MEDS ORDERED: Aspirin Chewable 81 MG TAB ONE (09:09)
[2018-10-10 09:10] LABS: Hemoglobin 11.8 g/dL (14.0-18.0); Mean Corpuscular HGB CONC 31.2 g/dL (32.0-36.0); Mean Corpuscular Hemoglobin 22.4 pg (27.0-31.0); Mean Corpuscular Volume 71.9 fL (78.0-98.0); Mean Platelet Volume 7.6 fL (7.4-10.4); Platelet Count 348 thou/uL (130-400); RBC Distribution Width 15.1 % (11.5-14.5); Red Blood Cell (RBC) Count 5.25 mill/uL (4.70-6.10); White Blood Cell (WBC) Count 13.1 thou/uL (4.8-10.8)
[2018-10-10 09:11] LABS: Anisocytosis SLIGHT = 6-15 cells (100X) (0-5/hpf); Eosinophils 2 % (0-10); Lymphocytes 11 % (21-51); MDiff Complete? YES; Microcytosis SLIGHT = 6-15 cells (100X) (0-5/hpf); Monocytes 3 % (0-10); Neutrophil 84 % (42-75); Platelet Morphology Comment Appears Adequate
[2018-10-10 09:12] LABS: Potassium 2.4 mmol/L (3.5-5.1)
[2018-10-10] MEDS ORDERED: Enoxaparin Sodium 120 MG/0.8 ML SYRINGE SC ONE (09:13)
--- NOTE | 2018-10-10 09:16 | RAD ---
EXAM: Single view of the chest HISTORY: Body aches and chest pain COMPARISON: 08/28/2018 FINDINGS: Single view of the chest shows a normal sized cardiomediastinal silhouette. The patient is status post sternotomy. There is no evidence of consolidation, mass, or pleural effusion. The bones are unremarkable. IMPRESSION: No evidence of acute cardiopulmonary disease
[2018-10-10 09:22] LABS: PTT 30.2 SEC (22.9-36.1); Prothrombin Time 13.3 SEC (12.0-14.7)
[2018-10-10] MEDS ORDERED: Potassium Chloride 20 MEQ TAB ONE (09:22)
[2018-10-10 10:00] LABS: Bilirubin Negative (Negative); Blood, Urine Small (Negative); Clarity Clear (Clear); Glucose, Urine (Dipstick) Negative (Negative); Leukocyte Negative (Negative); Nitrite Negative (Negative); Protein, Urine (Dipstick) Negative (Neg-Trace); Urobilinogen 0.2 mg/dL (0.2-1.0)
[2018-10-10 10:24] LABS: Bacteria/HPF Rare-Few HPF (None Seen); Other Microscopic Description NO; Squamous Epithelial None Seen HPF (0-3); WBC/HPF 0-3 HPF (0-3)
[2018-10-10 10:30] LABS: Amphetamine Not Detected (NotDetected); Barbiturates Screen Not Detected (NotDetected); Benzodiazepine Screen Not Detected (NotDetected); Cocaine Metabolite Screen Not Detected (NotDetected); Medtox Control Line Valid? VALID (VALID); Methadone Not Detected (NotDetected); Methamphetamine Not Detected (NotDetected); Opiate Screen Detected (NotDetected); Oxycodone Screen Not Detected (NotDetected); Phencyclidine (PCP) Not Detected (NotDetected); THC/Cannabinoid Screen Detected (NotDetected); Tricyclic Screen Not Detected (NotDetected)
== END 2018-10-10 10:20 | disposition short-term general hospital (02) ==
LOC: NAV ERS 08:05
DX: I95.9 Hypotension, unspecified (principal); R94.31 Abnormal electrocardiogram [ECG] [EKG]; E87.6 Hypokalemia; E87.1 Hypo-osmolality and hyponatremia; I13.2 Hypertensive heart and chronic kidney disease with heart failure and with stage 5 chronic kidney disease, or end stage renal disease; I50.9 Heart failure, unspecified; N18.6 End stage renal disease; I25.10 Atherosclerotic heart disease of native coronary artery without angina pectoris; I71.4 Abdominal aortic aneurysm, without rupture; E78.5 Hyperlipidemia, unspecified; F17.210 Nicotine dependence, cigarettes, uncomplicated; Z79.899 Other long term (current) drug therapy
CPT/HCPCS: 71045; 80053; 80306; 81003; 81015; 83605; 84484; 85025; 85610; 85730; 93005; 96360; 96372; J1650

== ENCOUNTER 2018-11-27 13:52 | Emergency (ER) | payer OTHER ==
[2018-11-27 17:55] LABS: Anion Gap 20 mmol/L (10-20); BUN (Urea Nitrogen) 22 mg/dL (8.4-25.7); Calc. Creatinine Clearance 0 mL/min (70-130); Calcium 9.7 mg/dL (7.8-10.44); Carbon Dioxide 23 mmol/L (22-29); Chloride 91 mmol/L (98-107); Estimated GFR-MDRD 62; Glucose 110 mg/dL (70-105); Potassium 3.7 mmol/L (3.5-5.1); Sodium 130 mmol/L (136-145)
== END 2018-11-27 15:22 | disposition home or self-care (01) ==
LOC: NAV ERS 13:52
DX: H65.23 Chronic serous otitis media, bilateral (principal); I13.2 Hypertensive heart and chronic kidney disease with heart failure and with stage 5 chronic kidney disease, or end stage renal disease; I50.9 Heart failure, unspecified; N18.6 End stage renal disease; E78.5 Hyperlipidemia, unspecified; E78.00 Pure hypercholesterolemia, unspecified; M19.90 Unspecified osteoarthritis, unspecified site; I25.2 Old myocardial infarction; F41.9 Anxiety disorder, unspecified; F17.210 Nicotine dependence, cigarettes, uncomplicated; Z79.899 Other long term (current) drug therapy; Z99.2 Dependence on renal dialysis
CPT/HCPCS: 80048; 99281

== ENCOUNTER 2018-12-30 11:53 | Emergency (ER) | payer OTHER ==
[2018-12-30] MEDS ORDERED: Sodium Chloride 0.9% 500 ML ONE (12:31)
[2018-12-30] MEDS ORDERED: Prochlorperazine 10 MG/2 ML VIAL ONE (12:32)
[2018-12-30 12:44] LABS: #Basophils 0.1 thou/uL (0.0-0.2); #Lymphocytes 1.1 thou/uL (1.20-3.40); #Monocytes 0.7 thou/uL (0.11-0.59); #Neutrophils 10.4 thou/uL (1.40-6.50); %Basophils 0.5 % (0.0-1.0); %Eosinophils 0.2 % (0.0-10.0); %Lymphocytes 8.6 % (21.0-51.0); %Monocytes 5.4 % (0.0-10.0); %Neutrophils 85.3 % (42.0-75.0); Hemoglobin 12.6 g/dL (14.0-18.0); Mean Corpuscular HGB CONC 32.1 g/dL (32.0-36.0); Mean Corpuscular Hemoglobin 23.2 pg (27.0-31.0); Mean Corpuscular Volume 72.4 fL (78.0-98.0); Mean Platelet Volume 5.7 fL (7.4-10.4); Platelet Count 379 thou/uL (130-400); Red Blood Cell (RBC) Count 5.41 mill/uL (4.70-6.10); White Blood Cell (WBC) Count 12.2 thou/uL (4.8-10.8)
[2018-12-30 12:45] LABS: ALT (SGPT) 27 U/L (8-55); AST (SGOT) 20 U/L (5-34); Alkaline Phosphatase 65 U/L (40-150); Anion Gap 21 mmol/L (10-20); BUN (Urea Nitrogen) 21 mg/dL (8.4-25.7); Bilirubin, Total 0.4 mg/dL (0.2-1.2); CK (CPK) 27 U/L (30-200); Calc. Creatinine Clearance 0 mL/min (70-130); Calcium 9.4 mg/dL (7.8-10.44); Carbon Dioxide 22 mmol/L (22-29); Chloride 77 mmol/L (98-107); Estimated GFR-MDRD 59; Globulin 3.1 g/dL (2.4-3.5); Glucose 118 mg/dL (70-105); Lipase 64 U/L (8-78); Magnesium 1.8 mg/dL (1.6-2.6); Potassium 3.8 mmol/L (3.5-5.1); Protein, Total 7.1 g/dL (6.0-8.3)
[2018-12-30 12:49] LABS: Sodium 116 mmol/L (136-145)
[2018-12-30] MEDS ORDERED: Sodium Chloride 0.9% 1,000 ML ONE (12:57)
== END 2018-12-30 13:43 | disposition short-term general hospital (02) ==
LOC: NAV ERS 11:53
DX: E87.1 Hypo-osmolality and hyponatremia (principal); I13.2 Hypertensive heart and chronic kidney disease with heart failure and with stage 5 chronic kidney disease, or end stage renal disease; I50.9 Heart failure, unspecified; N18.6 End stage renal disease; E27.40 Unspecified adrenocortical insufficiency; E78.5 Hyperlipidemia, unspecified; E78.00 Pure hypercholesterolemia, unspecified; F41.9 Anxiety disorder, unspecified; F17.210 Nicotine dependence, cigarettes, uncomplicated; I25.10 Atherosclerotic heart disease of native coronary artery without angina pectoris; I25.2 Old myocardial infarction; M32.9 Systemic lupus erythematosus, unspecified; M35.9 Systemic involvement of connective tissue, unspecified; M19.90 Unspecified osteoarthritis, unspecified site; Z79.899 Other long term (current) drug therapy
CPT/HCPCS: 80053; 82550; 83690; 83735; 84443; 84484; 85025; 93005; 96361; 96374; J0780; J7050

== ENCOUNTER 2019-01-05 19:52 | Emergency (ER) | payer OTHER ==
[2019-01-05 20:43] LABS: ALT (SGPT) 26 U/L (8-55); AST (SGOT) 23 U/L (5-34); Albumin 3.6 g/dL (3.5-5.0); Alkaline Phosphatase 64 U/L (40-150); Anion Gap 19 mmol/L (10-20); BUN (Urea Nitrogen) 15 mg/dL (8.4-25.7); Bilirubin, Total 0.2 mg/dL (0.2-1.2); Calc. Creatinine Clearance 0 mL/min (70-130); Calcium 8.8 mg/dL (7.8-10.44); Carbon Dioxide 21 mmol/L (22-29); Chloride 87 mmol/L (98-107); Estimated GFR-MDRD 54; Globulin 3.1 g/dL (2.4-3.5); Glucose 139 mg/dL (70-105); Potassium 4.2 mmol/L (3.5-5.1); Protein, Total 6.7 g/dL (6.0-8.3); Sodium 123 mmol/L (136-145)
[2019-01-05 20:44] LABS: Anisocytosis SLIGHT = 6-15 cells (100X) (0-5/hpf); Band 20 % (5-11); Hemoglobin 11.9 g/dL (14.0-18.0); Lymphocytes 7 % (21-51); MDiff Complete? YES; Mean Corpuscular HGB CONC 32.4 g/dL (32.0-36.0); Mean Corpuscular Hemoglobin 23.7 pg (27.0-31.0); Mean Corpuscular Volume 73.1 fL (78.0-98.0); Mean Platelet Volume 6.1 fL (7.4-10.4); Metamyelocyte 1 % (0-0); Microcytosis SLIGHT = 6-15 cells (100X) (0-5/hpf); Neutrophil 72 % (42-75); Platelet Count 336 thou/uL (130-400); Platelet Morphology Comment Appears Adequate; RBC Distribution Width 16.1 % (11.5-14.5); Red Blood Cell (RBC) Count 5.01 mill/uL (4.70-6.10); White Blood Cell (WBC) Count 10.7 thou/uL (4.8-10.8)
[2019-01-05] MEDS ORDERED: Diazepam 10 MG/2 ML SYRINGE ONE (21:10)
[2019-01-05] MEDS ORDERED: Sodium Chloride 0.9% 1,000 ML ONE (21:10)
[2019-01-05 21:35] LABS: Bilirubin Negative (Negative); Blood, Urine Trace (Negative); Clarity Clear (Clear); Glucose, Urine (Dipstick) Negative (Negative); Leukocyte Negative (Negative); Nitrite Negative (Negative); Protein, Urine (Dipstick) Negative (Neg-Trace); Urobilinogen 0.2 mg/dL (Less than 2)
[2019-01-05 21:37] LABS: RBC/HPF 0-3 HPF (0-3); WBC/HPF None Seen HPF (0-3)
[2019-01-05] MEDS ORDERED: Piperacillin/Tazobactam 4.5 GM VIAL ONE (21:37)
[2019-01-05] MEDS ORDERED: Sodium Chloride 0.9% 100 ML ONE (21:37)
[2019-01-05 21:38] LABS: Bacteria/HPF None Seen HPF (None Seen); Squamous Epithelial None Seen HPF (0-3)
--- NOTE | 2019-01-05 21:47 | RAD ---
2 views chest: 01/05/2019 COMPARISON: 10/10/2018 HISTORY: Spasms of the hands, left calf, and back FINDINGS: Heart and mediastinal contours are stable. Midline sternotomy wires are present. Mild incre ased linear interstitial density noted. No pneumothorax or pleural fluid. No focal consolidation or alveolar edema. Stable prominence of the cardiac silhouette. IMPRESSION: No acute findings.
== END 2019-01-05 22:56 | disposition left against medical advice (07) ==
LOC: NAV ERS 19:52
DX: E87.1 Hypo-osmolality and hyponatremia (principal); D72.825 Bandemia; R74.0 Nonspecific elevation of levels of transaminase and lactic acid dehydrogenase [LDH]; R25.2 Cramp and spasm; I13.2 Hypertensive heart and chronic kidney disease with heart failure and with stage 5 chronic kidney disease, or end stage renal disease; N18.6 End stage renal disease; I50.9 Heart failure, unspecified; E78.5 Hyperlipidemia, unspecified; E78.00 Pure hypercholesterolemia, unspecified; E27.40 Unspecified adrenocortical insufficiency; F41.9 Anxiety disorder, unspecified; I25.2 Old myocardial infarction; I25.10 Atherosclerotic heart disease of native coronary artery without angina pectoris; M32.9 Systemic lupus erythematosus, unspecified; M19.90 Unspecified osteoarthritis, unspecified site; M35.9 Systemic involvement of connective tissue, unspecified; F17.210 Nicotine dependence, cigarettes, uncomplicated; Z79.899 Other long term (current) drug therapy
CPT/HCPCS: 71046; 80053; 81003; 81015; 83605; 85025; 87040; 93005; 96365; 96375; J2543; J3360; J3490; J7050

== ENCOUNTER 2019-01-26 11:29 | Emergency (ER) | payer OTHER ==
[2019-01-26] MEDS ORDERED: Sodium Chloride 0.9% 250 ML 250 ML ONE (12:19)
[2019-01-26 12:33] LABS: #Basophils 0.1 thou/uL (0.0-0.2); #Lymphocytes 1.2 thou/uL (1.20-3.40); #Monocytes 0.6 thou/uL (0.11-0.59); #Neutrophils 14.6 thou/uL (1.40-6.50); %Basophils 0.5 % (0.0-1.0); %Eosinophils 0.1 % (0.0-10.0); %Lymphocytes 7.5 % (21.0-51.0); %Monocytes 3.8 % (0.0-10.0); %Neutrophils 88.1 % (42.0-75.0); Hemoglobin 11.8 g/dL (14.0-18.0); Mean Corpuscular HGB CONC 33.5 g/dL (32.0-36.0); Mean Corpuscular Hemoglobin 24.5 pg (27.0-31.0); Mean Corpuscular Volume 72.9 fL (78.0-98.0); Mean Platelet Volume 6.2 fL (7.4-10.4); Platelet Count 406 thou/uL (130-400); RBC Distribution Width 15.3 % (11.5-14.5); Red Blood Cell (RBC) Count 4.82 mill/uL (4.70-6.10); White Blood Cell (WBC) Count 16.6 thou/uL (4.8-10.8)
[2019-01-26 12:38] LABS: ALT (SGPT) 26 U/L (8-55); AST (SGOT) 16 U/L (5-34); Albumin 3.7 g/dL (3.5-5.0); Alkaline Phosphatase 82 U/L (40-110); Anion Gap 21 mmol/L (10-20); BUN (Urea Nitrogen) 28 mg/dL (8.4-25.7); Bilirubin, Total 0.3 mg/dL (0.2-1.2); CK (CPK) 43 U/L (30-200); Calc. Creatinine Clearance 0 mL/min (70-130); Calcium 9.7 mg/dL (7.8-10.44); Carbon Dioxide 32 mmol/L (22-29); Estimated GFR-MDRD 55; Globulin 3.2 g/dL (2.4-3.5); Glucose 166 mg/dL (70-105); Lipase 64 U/L (8-78); Protein, Total 6.9 g/dL (6.0-8.3)
[2019-01-26 12:46] LABS: Bilirubin Negative (Negative); Blood, Urine Moderate (Negative); Clarity Clear (Clear); Glucose, Urine (Dipstick) Negative (Negative); Leukocyte Negative (Negative); Nitrite Negative (Negative); Protein, Urine (Dipstick) Negative (Neg-Trace); Urobilinogen 0.2 mg/dL (Less than 2)
--- NOTE | 2019-01-26 12:49 | RAD ---
PORTABLE CHEST ONE VIEW: 01/26/2019 12:14 p.m. HISTORY: Weakness. Dizziness. Cough. COMPARISON: 01/07/2019 FINDINGS: There are changes of median sternotomy. The heart size is borderline. The lungs are well expanded wi thout lobar consolidation, pneumothoraces or pleural effusions. IMPRESSION: No acute process. POS: [facility]
--- NOTE | 2019-01-26 12:50 | RAD ---
Left hip 2 views HISTORY: Fall. Left hip injury. COMPARISON: 06/04/2014. FINDINGS: Metallic prosthesis in place. No perihardware lucency. No acute fracture or dislocation. IMPRESSION: Left hip prosthesis. No acute osseous abnormalities are demonstrated.
[2019-01-26 12:53] LABS: Chloride 68 mmol/L (98-107); Potassium 2.2 mmol/L (3.5-5.1); Sodium 118 mmol/L (136-145)
[2019-01-26 12:57] LABS: RBC/HPF 0-3 HPF (0-3); Squamous Epithelial 0-3 HPF (0-3)
[2019-01-26] MEDS ORDERED: Sodium Chloride 0.9% 100 ML ONE (12:58)
[2019-01-26] MEDS ORDERED: Azithromycin 500 MG VIAL ONE (12:58)
[2019-01-26] MEDS ORDERED: cefTRIAXone\\ROCEPHIN 1 GM VIAL ONE (12:58)
[2019-01-26] MEDS ORDERED: Potassium Chloride 20 MEQ TAB ONE (13:13)
== END 2019-01-26 13:59 | disposition left against medical advice (07) ==
LOC: NAV ERS 11:29
DX: A41.9 Sepsis, unspecified organism (principal); E87.1 Hypo-osmolality and hyponatremia; E87.6 Hypokalemia; J20.9 Acute bronchitis, unspecified; I13.2 Hypertensive heart and chronic kidney disease with heart failure and with stage 5 chronic kidney disease, or end stage renal disease; N18.6 End stage renal disease; I50.9 Heart failure, unspecified; E78.00 Pure hypercholesterolemia, unspecified; E78.5 Hyperlipidemia, unspecified; I25.10 Atherosclerotic heart disease of native coronary artery without angina pectoris; I25.2 Old myocardial infarction; F17.210 Nicotine dependence, cigarettes, uncomplicated; Z79.899 Other long term (current) drug therapy
CPT/HCPCS: 71045; 80053; 81003; 81015; 82550; 83605; 83690; 84484; 85025; 87040; 87086; 87804; 93005; 96361; 96365; 96375; J0456; J0696; J3490; J7050

== ENCOUNTER 2019-01-30 04:50 | Outpatient (CLI) | payer OTHER ==
[2019-01-30 06:13] LABS: #Lymphocytes 1.1 thou/uL (1.20-3.40); #Monocytes 0.5 thou/uL (0.11-0.59); %Basophils 0.3 % (0.0-1.0); %Eosinophils 0.3 % (0.0-10.0); %Lymphocytes 7.8 % (21.0-51.0); %Monocytes 3.7 % (0.0-10.0); %Neutrophils 87.9 % (42.0-75.0); Hemoglobin 10.5 g/dL (14.0-18.0); MDiff Complete? YES; Mean Corpuscular HGB CONC 31.6 g/dL (32.0-36.0); Mean Corpuscular Volume 76.1 fL (78.0-98.0); Mean Platelet Volume 5.6 fL (7.4-10.4); Ovalocytes SLIGHT = 2-5 cells (100X) (0-1/hpf); Platelet Count 351 thou/uL (130-400); Platelet Morphology Comment Appears Adequate; RBC Distribution Width 16.6 % (11.5-14.5); Red Blood Cell (RBC) Count 4.38 mill/uL (4.70-6.10); Target Cells SLIGHT = 2-5 cells (100X) (0-1/hpf); White Blood Cell (WBC) Count 13.6 thou/uL (4.8-10.8)
[2019-01-30 06:39] LABS: ALT (SGPT) 26 U/L (8-55); AST (SGOT) 14 U/L (5-34); Albumin 3.3 g/dL (3.5-5.0); Alkaline Phosphatase 76 U/L (40-110); Anion Gap 16 mmol/L (10-20); BUN (Urea Nitrogen) 17 mg/dL (8.4-25.7); Bilirubin, Total 0.2 mg/dL (0.2-1.2); Calc. Creatinine Clearance 0 mL/min (70-130); Calcium 8.6 mg/dL (7.8-10.44); Carbon Dioxide 22 mmol/L (22-29); Chloride 94 mmol/L (98-107); Estimated GFR-MDRD 81; Globulin 2.4 g/dL (2.4-3.5); Glucose 155 mg/dL (70-105); Potassium 4.6 mmol/L (3.5-5.1); Protein, Total 5.7 g/dL (6.0-8.3); Sodium 127 mmol/L (136-145)
== END 2019-01-30 04:51 | disposition home or self-care (01) ==
LOC: HPNAV 04:50
PROVIDERS: ATTEND Family Medicine
DX: E27.1 Primary adrenocortical insufficiency (principal)
CPT/HCPCS: 36415; 80053; 85025

== ENCOUNTER 2019-03-27 19:02 | Emergency (ER) | payer SELFPAY ==
[2019-03-27] MEDS ORDERED: Lidocaine 1% (PF) 30 ML VIAL ONE (19:32)
[2019-03-27] MEDS ORDERED: Sodium Bicarbonate 2.5 MEQ/5 ML VIAL ONE (19:32)
[2019-03-27] MEDS ORDERED: Ondansetron ODT 4 MG TAB ONE (19:40)
[2019-03-27] MEDS ORDERED: Potassium Chloride 10 MEQ/100 ML PREMIX BAG ONE (19:44)
[2019-03-27] MEDS ORDERED: Pot Chloride/Pot Bicarb/Cit Ac 25 mEq Effervescent Tablet ONE (19:46)
[2019-03-27 20:00] LABS: #Lymphocytes 0.6 thou/uL (1.20-3.40); #Monocytes 0.5 thou/uL (0.11-0.59); #Neutrophils 11.4 thou/uL (1.40-6.50); %Basophils 0.4 % (0.0-1.0); %Eosinophils 0.1 % (0.0-10.0); %Lymphocytes 4.5 % (21.0-51.0); %Monocytes 4.1 % (0.0-10.0); %Neutrophils 90.9 % (42.0-75.0); Hemoglobin 10.8 g/dL (14.0-18.0); Mean Corpuscular HGB CONC 34.3 g/dL (32.0-36.0); Mean Corpuscular Hemoglobin 27.1 pg (27.0-31.0); Mean Corpuscular Volume 79.1 fL (78.0-98.0); Mean Platelet Volume 6.5 fL (7.4-10.4); Platelet Count 268 thou/uL (130-400); RBC Distribution Width 15.6 % (11.5-14.5); Red Blood Cell (RBC) Count 3.96 mill/uL (4.70-6.10); White Blood Cell (WBC) Count 12.5 thou/uL (4.8-10.8)
[2019-03-27 20:22] LABS: ALT (SGPT) 21 U/L (8-55); AST (SGOT) 14 U/L (5-34); Albumin 3.3 g/dL (3.5-5.0); Alkaline Phosphatase 72 U/L (40-110); Anion Gap 18 mmol/L (10-20); BUN (Urea Nitrogen) 21 mg/dL (8.4-25.7); Bilirubin, Total 0.3 mg/dL (0.2-1.2); CK (CPK) 17 U/L (30-200); Calc. Creatinine Clearance 0 mL/min (70-130); Calcium 8.3 mg/dL (7.8-10.44); Carbon Dioxide 27 mmol/L (22-29); Chloride 76 mmol/L (98-107); Estimated GFR-MDRD 86; Globulin 2.2 g/dL (2.4-3.5); Glucose 155 mg/dL (70-105); Protein, Total 5.5 g/dL (6.0-8.3)
[2019-03-27 20:29] LABS: Potassium 2.4 mmol/L (3.5-5.1); Sodium 119 mmol/L (136-145)
[2019-03-27 20:45] LABS: CKMB 1.6 ng/mL (0-6.6)
[2019-03-27] MEDS ORDERED: Sodium Chloride 0.9% 1,000 ML ONE (21:25)
== END 2019-03-27 22:00 | disposition short-term general hospital (02) ==
LOC: NAV ERS 19:02
DX: E87.1 Hypo-osmolality and hyponatremia (principal); E87.6 Hypokalemia; R53.1 Weakness; R41.0 Disorientation, unspecified; R79.89 Other specified abnormal findings of blood chemistry; M32.9 Systemic lupus erythematosus, unspecified; I13.2 Hypertensive heart and chronic kidney disease with heart failure and with stage 5 chronic kidney disease, or end stage renal disease; I25.10 Atherosclerotic heart disease of native coronary artery without angina pectoris; I25.2 Old myocardial infarction; N18.6 End stage renal disease; I50.9 Heart failure, unspecified; E78.5 Hyperlipidemia, unspecified; E78.00 Pure hypercholesterolemia, unspecified; M19.90 Unspecified osteoarthritis, unspecified site; F41.9 Anxiety disorder, unspecified; F17.210 Nicotine dependence, cigarettes, uncomplicated; Z79.899 Other long term (current) drug therapy; Z99.2 Dependence on renal dialysis
CPT/HCPCS: 82550; 82553; 84484; 85025; 93005; 96360; 96372; J2001; J3480; J7050; Q0162

== ENCOUNTER 2019-06-07 09:49 | Emergency (ER) | payer OTHER, SELFPAY | END 2019-06-07 12:04 | disposition E | LOC: NAV ERS 09:49 | DX: I46.9 Cardiac arrest, cause unspecified (principal); I13.2 Hypertensive heart and chronic kidney disease with heart failure and with stage 5 chronic kidney disease, or end stage renal disease; N18.6 End stage renal disease; I50.9 Heart failure, unspecified; E78.5 Hyperlipidemia, unspecified; E78.00 Pure hypercholesterolemia, unspecified; M19.90 Unspecified osteoarthritis, unspecified site; I25.10 Atherosclerotic heart disease of native coronary artery without angina pectoris; I25.2 Old myocardial infarction; F41.9 Anxiety disorder, unspecified; F17.210 Nicotine dependence, cigarettes, uncomplicated | CPT/HCPCS: 99285 ==